=== PATIENT | male | born 1980 | race Caucasian/White ===

== ENCOUNTER → 2020-12-08 13:12 | Outpatient (REF) | payer MEDICAID, SELFPAY ==
--- NOTE | 2020-12-08 13:21 | ECG_ITS ---
Test Reason : CP Blood Pressure : / mmHG Vent. Rate : 084 BPM Atrial Rate : 084 BPM P-R Int : 134 ms QRS Dur : 090 ms QT Int : 346 ms P-R-T Axes : 065 071 035 degrees QTc Int : 408 ms Normal sinus rhythm Normal ECG No previous ECGs available Referred By: Lizette Sidhu Electronically Signed By:FRANK HERNANDEZ
== END ==
LOC: HO.CARD 13:12
PROVIDERS: PCP Registered Nurse; Visit Provider Registered Nurse
DX: R07.9 Chest pain, unspecified (principal); R00.2 Palpitations
CPT/HCPCS: 93005

== ENCOUNTER → 2023-01-11 09:56 | Outpatient (BNVA) | payer MEDICAID, SELFPAY | PROVIDERS: PCP Registered Nurse; Referring Provider Family Medicine; Visit Provider Internal Medicine | DX: R00.2 Palpitations (principal); I10 Essential (primary) hypertension; G47.33 Obstructive sleep apnea (adult) (pediatric); E66.01 Morbid (severe) obesity due to excess calories; Z68.43 Body mass index [BMI] 50.0-59.9, adult | CPT/HCPCS: 93005; 99202 ==

== ENCOUNTER → 2023-01-30 08:17 | Outpatient (REF) | payer MEDICAID, SELFPAY ==
--- NOTE | 2023-01-30 08:21 | CA_ITS ---
Transthoracic Echocardiogram Patient (Last, First, Middle): Avel Ambrose, Gender: Male Date of : 1980 Age: 42 Procedure Date: 01/30/2023 Procedure Type: Transthoracic Echocardiogram Location: OP Height: 167.64 cm Weight: 149.69 kg BSA: 2.47 m2 Heart Rate: bpm BP: 130 / 80 mmHg Cleaning Matron: PHILIP Referring MD: Christopher Max MD Symptoms: R00.2 - Palpitations Study Quality: Fair ECG Rhythm: Sinus Conclusions: - The left ventricular systolic function is normal. The visually estimated ejection fraction is between 65-70%. - No obvious valvular pathology seen on this study. Findings Left Ventricle Normal left ventricular cavity size. There is mildly increased left ventricular wall thickness. The left ventricular systolic function is normal. The visually estimated ejection fraction is between 65-70%. There is no evidence of regional wall motion abnormalities. Diastolic function is normal for age. Right Ventricle Mildly increased right ventricular cavity size. There is normal right ventricular systolic function. Atria Both atria are normal in size. Aortic Valve The aortic valve was not well visualized. There is no aortic valve stenosis. There is no aortic valve regurgitation. Mitral Valve The mitral valve appears normal. There is no mitral valve regurgitation. There is no mitral valve stenosis. Pulmonic Valve The pulmonic valve is likely normal. Tricuspid Valve There is trace tricuspid valve regurgitation. There is no evidence of pulmonary hypertension. Great Vessels The asc aorta is normal in size. Venous The inferior vena cava was not well visualized. Pericardium/Pleural There is no evidence of pericardial effusion. Prior Study Comparison No prior study available for comparison. Recommendations, Care & Conclusions No obvious valvular pathology seen on this study. Measurements 2D Linear Measurements IVSd: 1.16 0.6-0.9/0.6-1.0 cm LVIDd: 5.13 3.9-5.3/4.2-5.9 cm LVIDd Index: 2.08 2.4-3.2/2.2-3.1 cm/m2 LVIDs: 3.42 2.0-3.6 cm LVPWd: 1.12 0.7-1.1 cm LA Diam: 3.70 2.7-3.8/3.0-4.0 cm LAIDs Index: 1.50 1.5-2.3 cm/m2 LV Mass: 282.74 67-162/88-224 g LV Mass Index: 114.47 43-95/49-115 g/m2 LVOT Diam: 2.00 3.0+(-)1.3 cm 2D Systolic Function EF 4C: 68.20 >55% EF 2C: 76.50 >55% EF BiP: 71.90 >55% Mitral Valve MV Pk E: 0.84 MV PK A: 0.55 MV Decel Time: 192.00 E/A: 1.50 E'Lateral: 12.80 E'Medial: 8.05 E/E' Med: 10.50 E/E' Lat: 6.60 PHT: 56.00 MVA PHT: 3.93 Decel Berg[place]: 4.40 Aortic Valve AoV Pk Rufus: 1.31 AoV Mn Rufus: 0.83 AoV VTI: 0.27 AoV Pk Grad: 7.00 Aov Mn Grad: 3.00 ASHOK Cont.VTI: 2.92 LVOT LVOT Pk Rufus: 1.22 LVOT Mn Rufus: 0.73 LVOT VTI: 0.25 LVOT Pk Grad: 6.00 LVOT Mn Grad: 3.00 LVOT Diam: 2.00 LVOT Area: 3.14 Diastolic Function MV Pk E: 0.84 MV Pk A: 0.55 E/A: 1.50 E'Medial: 8.05 E/E' Med: 10.50 E' Laterial: 12.80 E/E' Lat: 6.60 Right Ventricle TAPSE (mm): 29.00 TVS' Rufus: 13.00 Tricuspid Valve TR Pk Rufus: 1.73 TR Pk Grad: 12.00 RA Press: 3.00 RVSP: 15.00 Great Vessels Aorta Ao Asc: 3.30 2.1-3.4 cm Updated in Other Vendor System with Status of Final Christopher Max MD electronically signed on 01/30/2023 11:56:49 AM with status of Final
--- NOTE | 2023-01-30 08:21 | HM_ITS ---
Conclusion: 1. Patient was monitored for total period of 2 days and 5 hours 2. Baseline was normal sinus rhythm with average heart rate of 75 beats per minute 3. No significant pauses or bradycardia noted 4. Very rare ectopy noted 5. No patient reported events MTDD
== END ==
LOC: HO.CARD 08:17
PROVIDERS: PCP Registered Nurse; Visit Provider Internal Medicine
DX: R00.2 Palpitations (principal)
CPT/HCPCS: 93225; 93306; Q9957

== ENCOUNTER 2023-09-06 09:37 | Outpatient (REF) | payer MEDICAID, SELFPAY ==
[2023-09-06 11:14] LABS: MANUAL DIFF FLAG NO
[2023-09-06 11:43] LABS: Basophils Absolute Auto 0.1 X10*3/uL (0.0-0.2); Basophils Percent Auto 0.6 % (0-2); Eosinophils Absolute Auto 0.2 X10*3/uL (0.0-0.4); Eosinophils Percent Auto 1.8 % (0-4); Hematocrit 45.5 % (42.0-52.0); Hemoglobin 14.7 g/dl (14.0-18.0); Imm Gran Abs Auto 0.05 X10*3/uL (0.00-0.03); Imm Gran Pct Auto 0.6 % (0.0-0.4); Lymphocytes Percent Auto 23.8 % (20-40); Mean Corpuscular HGB Conc 32.3 g/dl (31.0-36.0); Mean Corpuscular Hemoglobin 28.5 pg (27.0-33.0); Mean Corpuscular Volume 88.2 fL (80.0-98.0); Monocytes Absolute Auto 0.5 X10*3/uL (0.1-1.2); Monocytes Percent Auto 6.6 % (2-11); Neutrophils Absolute Auto 5.5 x10*3/uL (2.0-8.3); Neutrophils Percent Auto 66.6 % (45-73); Platelet Count 233 X10*3/uL (160-400); Red Blood Count 5.16 X10*6/uL (4.60-5.80); Red Cell Distribution Width 13.8 % (11.0-16.0); White Blood Count 8.2 X10*3/uL (4.8-10.8)
[2023-09-06 11:56] LABS: Estimated Average Glucose 108 mg/dL; Hemoglobin A1c % 5.4 % (<6.0)
[2023-09-06 12:17] LABS: Creatinine Urine 197.33 mg/dL; Microalbum/Creatinine Ratio Ur 4.5 ug/mg cr (<30)
[2023-09-06 12:27] LABS: HIV AB/AG Nonreactive (Nonreactive); HIV Num 1 0.05 S/CO (0.00-0.99)
[2023-09-06 14:52] LABS: Alanine Aminotransferase 29 U/L (0-40); Alkaline Phosphatase 41 U/L (39-117); Anion Gap 11 (12-20); Aspartate Amino Transferase 21 U/L (5-37); Bilirubin Total 0.4 mg/dL (0.0-1.0); Blood Urea Nitrogen 13 mg/dL (9-16); Calcium 9.3 mg/dL (8.4-10.2); Carbon Dioxide 24 mmol/L (22-29); Chloride 108 mmol/L (96-108); Cholesterol 163 mg/dL (<200); Estimated Glomerular Filt Rate > 60; Glucose Random 91 mg/dL (60-115); HDL Cholesterol 44 mg/dL (>40); LDL Cholesterol Calculated 104 mg/dL (<100); Potassium 4.3 mmol/L (3.3-5.1); Sodium 139 mmol/L (135-145); Total Protein 7.6 g/dL (6.5-8.0); Triglycerides 75 mg/dL (<150)
[2023-09-06 15:09] LABS: TSH reflex Free T4 1.52 uIU/mL (0.32-4.0)
[2023-09-07 19:48] LABS: HCV Log PCR <1.18 NOT DETECTED Log IU/mL (NOT DETECTED); HepC Viral Load <15 NOT DETECTED IU/mL (NOT DETECTED)
[2023-09-08 12:38] LABS: RPR Rapid Plasma Reagin NON-REACTIVE (NON-REACTIVE)
== END 2023-09-06 09:38 | disposition home or self-care (01) ==
LOC: HO.HHCL 09:37
PROVIDERS: Visit Provider Registered Nurse
DX: Z00.00 Encounter for general adult medical examination without abnormal findings (principal); Z11.4 Encounter for screening for human immunodeficiency virus [HIV]; I10 Essential (primary) hypertension; E66.01 Morbid (severe) obesity due to excess calories; Z68.43 Body mass index [BMI] 50.0-59.9, adult
CPT/HCPCS: 36415; 80053; 80061; 82043; 82570; 83036; 84443; 85025; 86592; 87389; 87522

== ENCOUNTER 2024-02-22 09:00 | Outpatient (AMB) | payer MEDICAID, SELFPAY ==
--- NOTE | 2024-02-22 09:01 | MHC.OFFVIS ---
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 I had a sleep apnea test last week, I have a machine already i just need to establish. Allergies aspirin [ASA] Allergy (Severe, Verified 02/22/24 09:05) ANAPHYLAXIS Medication List - Last Reconciled 02/22/24 by CONSTANCE Dupont bupropion HCl XL 300 mg PO QAM cholecalciferol (vitamin D3) (Vitamin D3) 50 mcg PO DAILY gabapentin 0 mg PO gabapentin 100 mg PO BID metoprolol tartrate 25 mg PO BID HPI Comments Details: right-handed 43-yr-old male presents for new in-person patient visit for sleep consultation. Patient reports he was dx'd w/ sleep apnea in [id number]. He has been using CPAP, however it is not working as well. He just underwent a f/u in-lab PSG last week at [facility]- unfortunately these results are not yet available. His current PAP device is a [employer] machine. His resp company is [employer]. Sleep questionnaire: Have you ever been diagnosed with a sleep disorder? Yes Have you ever had a sleep study in the past? Yes Have you ever been treated for a sleep disorder? Yes Do you take medications for a sleep disorder? Uses Gabapentin for PLMS/RLS. Do you have difficulty initiating sleep? yes Do you have difficulty maintaining sleep? yes Wakes up 2-3 x's. Do you wake up tired? yes Do you have daytime tiredness or fatigue? yes Do you easily fall asleep when inactive? yes Do you snore? yes Do you wake up gasping at night? yes Do you have episodes of apneas? yes Do you have headaches upon awakening? no Do you wake up with dry mouth or throat? yes Do you have GERD? denies Do you have nocturia? yes Do you have nocturnal leg cramps? yes Do you have symptoms of restless legs? Yes, and has Urge to move, Restlessness,Cramps. Involuntary movements- in legs, hand tremors L > R. Do you act out your dreams? Yes- talks, yells, punches Do you have sleep paralysis? no Do you have drop attacks? no Do you ever have hypnogenic hallucinations? has some nocturnal hallucinations- at times [facility] Medical History (Updated 02/22/24 @ 17:34 by CONSTANCE Dupont) Essential hypertension Morbid obesity NYA (obstructive sleep apnea) Family History Mother No problems noted. Father Throat cancer Social History Alcohol intake: never Patient Tobacco Use Status: Never used Tobacco Physical Exam Vital Signs: Last Vital Signs Pulse 76 02/22/24 09:03 Pulse Ox 95 02/22/24 09:03 Oxygen Delivery Method Room Air 02/22/24 09:03 BMI result Body Mass Index 52.0 Const General: no acute distress Orientation/consciousness: patient oriented x3 HEENT Other: Mallampati stage Resp Effort & Inspection: normal respiratory effort and able to speak in complete sentences Auscultation: clear to auscultation bilaterally Cardio Rate: regular rate Rhythm: regular rhythm Heart sounds: S1 normal heart sound present and S2 normal heart sound present Neuro Other: Mild LUE postural tremor, slight decreased fluidity in LUE DRE and LLE foot tap. General: patient oriented x3 Psych Appearance: grossly normal Mental Status: mental status grossly normal Speech and movement: Clear speech present Affect: normal affect Attitude: cooperative Assessment & Plan Assessment & Plan (1) NYA (obstructive sleep apnea): Code(s): G47.33 - Obstructive sleep apnea (adult) (pediatric) Category: Medical (2) Morbid obesity: Code(s): E66.01 - Morbid (severe) obesity due to excess calories Category: Medical (3) Snoring: Code(s): R06.83 - Snoring Category: Medical (4) Parasomnia: Code(s): G47.50 - Parasomnia, unspecified Category: Medical Plan Will request in-lab sleep study results- will review degree of sleep apnea and for any evidence of nocturnal hallucinations, involuntary movements and parasomnias during sleep. Note- pt is f/b [facility] for tremor. Continue Gabapentin 100mg bid and 300mg qhs. Will f/u with pt after review of recent sleep study to discuss results and appropriate treatment options. Pt to call with any worsening concerns or questions. f/u in 6 months or sooner prn. Coding Level of Care Code New Pt Level 3 (30428) Diagnoses NYA (obstructive sleep apnea) G47.33 Morbid obesity E66.01 Snoring R06.83 Parasomnia G47.50
[2024-02-22 09:03] VITALS: PULSE 76; O2SAT 95; BMI 52.0
== END 2024-02-22 09:58 | disposition home or self-care (01) ==
PROVIDERS: PCP Registered Nurse; Visit Provider Nurse Practitioner Family
DX: G47.33 Obstructive sleep apnea (adult) (pediatric) (principal); E66.01 Morbid (severe) obesity due to excess calories; R06.83 Snoring; G47.50 Parasomnia, unspecified
CPT/HCPCS: 99203

== ENCOUNTER → 2024-02-22 09:00 | Outpatient (BNVA) | payer MEDICAID, SELFPAY | PROVIDERS: PCP Registered Nurse; Visit Provider Nurse Practitioner Family | DX: G47.33 Obstructive sleep apnea (adult) (pediatric) (principal); G47.50 Parasomnia, unspecified; R06.83 Snoring; E66.01 Morbid (severe) obesity due to excess calories; Z68.43 Body mass index [BMI] 50.0-59.9, adult | CPT/HCPCS: 99212 ==

== ENCOUNTER 2024-05-01 07:20 | Day surgery (SDC) | payer MEDICAID, SELFPAY ==
[2024-04-29 13:39] VITALS: BMI 54.1
--- NOTE | 2024-04-30 12:08 | HO.ANESPROP2 ---
HPI - Anesthesia Eval Consult details Narrative: 43yo M for Upper Endoscopy and Colonoscopy BMI 54 PMFSH Active Problems Active Problems: All Active Problems Tremor (Acute) Parasomnia (Acute) Snoring (Acute) Heart palpitations (Acute) Essential hypertension (Acute) Morbid obesity (Acute) NYA (obstructive sleep apnea) (Acute) Past Medical History Medical History Depression Arthritis Asthma Essential hypertension Morbid obesity NYA (obstructive sleep apnea) Family History Family History Mother No problems noted. Father Throat cancer Surgical History Surgical History History of esophagogastroduodenoscopy (EGD) H/O colonoscopy Social History Social History Alcohol intake: never Patient Tobacco Use Status: Never used Tobacco Use of substances other than those prescribed or required for medical reasons: No Are you DNR?: No Advance Directives: No Advance Directives Information Provided: Yes Meds Allergies Allergy/AdvReac Type Severity Reaction Status Date / Time aspirin [ASA] Allergy Severe ANAPHYLAXIS Verified 02/22/24 09:05 Home Medications ?Medication ?Instructions ?Recorded ?Confirmed ?Last Taken ?Type bupropion HCl 300 mg 24 hr tablet, 300 mg PO QAM 01/11/23 04/29/24 Unknown History extended release gabapentin 100 mg capsule 100 mg PO BID 01/11/23 04/29/24 Unknown History metoprolol tartrate 25 mg tablet 25 mg PO BID 01/11/23 05/01/24 05/01/24 06:00 History albuterol sulfate 0.63 mg/3 mL 0.63 mg inhalation Q4-6H PRN 04/29/24 04/29/24 Unknown History solution for nebulization wheezing cholecalciferol (vitamin D3) 125 125 mcg PO DAILY 04/29/24 04/29/24 Unknown History mcg (5,000 unit) tablet (Vitamin D3) cyclobenzaprine 10 mg tablet 10 mg PO TID PRN Muscle Spasm 04/29/24 04/29/24 Unknown History montelukast 10 mg tablet 10 mg PO BEDTIME 04/29/24 04/29/24 Unknown History Exam Height,Weight and Vital Signs: Height 5 ft 6 in Weight 151.953 kg Narrative Narrative: ECHO 2022 Conclusions: - The left ventricular systolic function is normal. The visually estimated ejection fraction is between 65-70%. - No obvious valvular pathology seen on this study. Assessment and Plan Assessment Anesthesia Assessment: Chart Reviewed
[2024-05-01 07:40] VITALS: BMI 52.6
[2024-05-01 07:55] VITALS: BP 135/78; PULSE 74; RESP 18; TEMP 36.2; O2SAT 97
--- NOTE | 2024-05-01 08:02 | P.CONAN_ITS ---
[facility] Active Problems Active Problems: All Active Problems Tremor (Acute) Parasomnia (Acute) Snoring (Acute) Heart palpitations (Acute) Essential hypertension (Acute) Morbid obesity (Acute) NYA (obstructive sleep apnea) (Acute) Past Medical History Medical History Depression Arthritis Asthma Essential hypertension Morbid obesity NYA (obstructive sleep apnea) Functional capacity: independent ambulation Family History Family History Mother No problems noted. Father Throat cancer Pertinent family history: h Family history of problems with anesthesia: No Surgical History Surgical History History of esophagogastroduodenoscopy (EGD) H/O colonoscopy History of Problems with Anesthesia: No Social History Social History Alcohol intake: never Patient Tobacco Use Status: Never used Tobacco Use of substances other than those prescribed or required for medical reasons: No Are you DNR?: No Advance Directives: No Advance Directives Information Provided: Yes Meds Allergies Allergy/AdvReac Type Severity Reaction Status Date / Time aspirin [ASA] Allergy Severe ANAPHYLAXIS Verified 02/22/24 09:05 Active Medications: Current Medications Albuterol Sulfate (Albuterol Sulfate (0.083%) 2.5 Mg/3 Ml Vial.Neb) 2.5 mg INHALE ONCE PRN PRN Reason: Shortness of Breath/Wheezing Lactated Ringer's (Lr) 1,000 mls @ 100 mls/hr IVCONT .Q10H HOMER Sodium Biphosphate/Sodium Phosphate (Sodium Phosphate,[place]-Dibasic 133 Ml Enema) 133 ml NV ONCE PRN PRN Reason: Poor Colonoscopy Prep Results Home Medications ?Medication ?Instructions ?Recorded ?Confirmed ?Last Taken ?Type bupropion HCl 300 mg 24 hr tablet, 300 mg PO QAM 01/11/23 04/29/24 Unknown History extended release gabapentin 100 mg capsule 100 mg PO BID 01/11/23 04/29/24 Unknown History metoprolol tartrate 25 mg tablet 25 mg PO BID 01/11/23 05/01/24 05/01/24 06:00 History albuterol sulfate 0.63 mg/3 mL 0.63 mg inhalation Q4-6H PRN 04/29/24 04/29/24 Unknown History solution for nebulization wheezing cholecalciferol (vitamin D3) 125 125 mcg PO DAILY 04/29/24 04/29/24 Unknown History mcg (5,000 unit) tablet (Vitamin D3) cyclobenzaprine 10 mg tablet 10 mg PO TID PRN Muscle Spasm 04/29/24 04/29/24 Unknown History montelukast 10 mg tablet 10 mg PO BEDTIME 04/29/24 04/29/24 Unknown History Exam Height,Weight and Vital Signs: Height 5 ft 6 in Weight 147.871 kg Last Vital Signs Temp 97.2 F 05/01/24 07:55 Pulse 74 05/01/24 07:55 Resp 18 05/01/24 07:55 BP 135/78 05/01/24 07:55 Pulse Ox 97 05/01/24 07:55 O2 Del Method Room Air 05/01/24 07:55 Airway Mallampati Class: IV TM Dist: >3cm Neck ROM: Full Heart: RRR Lungs: CTA Assessment and Plan Final Anesthetic Review Family History of Problems with Anesthesia: No History of Problems with Anesthesia: No NPO: Yes ASA Class: III Final Preanesthetic Review: Meds/Allgs Chart Reviewed, Consent Obtained/Reviewed and Anes Risks/Benef Reviewed Patient Risk: Intermediate Procedure Risk: Low Anesthetic Plan Anesthetic Plan: GA Disposition: Standard PACU
[2024-05-01] MEDS: Lactated Ringers 1,000 ML 100 ML IVCONT (08:11)
[2024-05-01 10:10] VITALS: BP 156/86; PULSE 86; RESP 16; TEMP 36.1; O2SAT 95
[2024-05-01 10:15] VITALS: BP 143/75; PULSE 75; RESP 17; O2SAT 94
--- NOTE | 2024-05-01 10:18 | PM.OP ---
Brief Operative Note Date of Service: 05/01/24 Pre-op diagnosis: GERD, Screening Post-op diagnosis: other (GERD, Polyps) Procedure: EGD with bx, Colonoscopy to the cecum with bx/removal of polyps Surgeon: Remington Frances MD Anesthesia: GETA Was an Advertising Teacher used for this Procedure?: No Estimated blood loss (mL): 2.0 Pathology: other (A. EG Junction at 40cm B. Polyp at 50cm C. Polyp at 15cm) Condition: stable Disposition: PACU
[2024-05-01 10:20] VITALS: BP 133/82; PULSE 75; RESP 17; O2SAT 96
[2024-05-01 10:25] VITALS: BP 112/67; PULSE 77; RESP 17; O2SAT 93
[2024-05-01 10:40] VITALS: BP 124/68; PULSE 70; RESP 18; TEMP 36.2; O2SAT 96
--- NOTE | 2024-05-01 10:46 | OP_ITS ---
DATE OF SERVICE: 05/01/2024 SURGEON: Remington Frances MD INDICATIONS: The patient presents for evaluation of chronic gastroesophageal reflux and colorectal cancer screening. Full consent was obtained from him for this, including risks of bleeding and perforation. PREOPERATIVE DIAGNOSIS: POSTOPERATIVE DIAGNOSIS: PROCEDURE PERFORMED: ESTIMATED BLOOD LOSS: COMPLICATIONS: ANESTHESIA: General anesthesia. ASSISTANTS: SPECIMENS: PREOPERATIVE DIAGNOSES: Chronic gastroesophageal reflux and colorectal cancer screening. POSTOPERATIVE DIAGNOSES: Chronic gastroesophageal reflux and colorectal cancer screening, minimal hiatal hernia, minimal changes of reflux, small colon polyps, mild diverticulosis, and small internal hemorrhoids. PROCEDURES PERFORMED: Esophagogastroduodenoscopy with biopsies, and colonoscopy to cecum with biopsy and removal of polyps. DESCRIPTION OF PROCEDURE: The patient was placed in the supine position. The Olympus video gastroscope was passed in the posterior oropharynx and upper esophagus under direct vision. The scope was passed slowly to the distal esophagus. The gastroesophageal junction appeared at 40 cm. There was some very minimal irregularity, consistent with reflux, but no evidence of esophagitis nor any definitive evidence of Dobbins mucosa. The scope entered the stomach. There was a minimal hiatal hernia. The scope was advanced to pylorus and the duodenum was cannulated to the descending portion. The duodenum including the bulb appeared normal without mass or ulceration. The scope was withdrawn back in the stomach. The gastric antrum and body appeared normal with good peristalsis. The scope was retroflexed, visualizing the proximal stomach carefully, which appeared normal, without any sign of mass or ulceration. The scope was straightened and withdrawn back to the esophagus. Biopsies were obtained at the EG junction. Proximal to this, the esophageal mucosa appeared normal. Scope was withdrawn from the patient. He was turned around for the colonoscopy and placed in the left lateral decubitus position. The digital rectal exam revealed no abnormalities. The Olympus video pediatric colonoscope was entered into the rectum and advanced easily to the cecum. Once in the cecum, I did identify normal-appearing cecal pouch with appendiceal orifice and a normal-appearing ileocecal valve. The entire cecum and ileocecal valve appeared normal. The scope was slowly withdrawn assessing all mucosal surfaces carefully. Preparation was excellent. At 50 cm was a flat, approximately 3 mm polyp, which was biopsied and completely removed with cold biopsy forceps. There was a mild amount of sigmoid diverticulosis. I did not visualize any sign of colitis nor angiodysplasia. In the rectum, scope was retroflexed visualizing small internal hemorrhoids as well as 2 distal, less than 5 mm polyps, which were both biopsied and removed with a cold biopsy forceps. The scope was straightened and withdrawn from the patient. He tolerated both procedures well and was returned to recovery area in stable condition. IMPRESSION: 1. Small colon polyps. 2. Mild diverticulosis. 3. Small internal hemorrhoids. 4. Minimal hiatal hernia and reflux. PLAN: The results of the biopsies will be checked. If any of the polyps are tubular adenomas, I would recommend a followup colonoscopy in 5 years. If they are all hyperplastic, I would recommend a followup coloscopy in 10 years for screening. He will continue his daily omeprazole that I started him on back in January as he does report that it has been helping his reflux. He was advised not to use any aspirin and NSAIDs for 1 week. He will otherwise see me on a p.r.n. basis. MD MARU Guajardo/LACIE / [phone]
--- NOTE | 2024-05-01 11:15 | HO.POSTANES ---
Post Anesthesia Evaluation Post Anesthesia Evaluation Date of Service: 05/01/24 Vital Signs: Vital Signs Temp Pulse Resp BP Pulse Ox O2 Del Method 05/01/24 10:40 97.2 F 70 18 124/68 96 Room Air 05/01/24 10:25 77 17 112/67 93 Room Air 05/01/24 10:20 75 17 133/82 96 Room Air 05/01/24 10:15 75 17 143/75 H 94 Room Air 05/01/24 10:10 97.0 F 86 16 156/86 H 95 Room Air 05/01/24 07:55 97.2 F 74 18 135/78 97 Room Air Anesthesia: General Endotracheal-GETA Mental Status: Awake Pain Control: Satisfactory Nausea/Vomiting: None Hydration: Adequate Anesthesia-Related Issues: No Anes. Related Issues
== END 2024-05-01 11:15 | disposition home or self-care (01) ==
PROVIDERS: PCP Registered Nurse; Visit Provider Internal Medicine
PROC: (CPT 45380; principal; 2024-05-01 08:30)
DX: Z12.11 Encounter for screening for malignant neoplasm of colon (principal); K51.40 Inflammatory polyps of colon without complications; D12.5 Benign neoplasm of sigmoid colon; K62.1 Rectal polyp; K57.30 Diverticulosis of large intestine without perforation or abscess without bleeding; K64.8 Other hemorrhoids; K58.9 Irritable bowel syndrome, unspecified; R10.30 Lower abdominal pain, unspecified; R14.0 Abdominal distension (gaseous); K21.9 Gastro-esophageal reflux disease without esophagitis; K44.9 Diaphragmatic hernia without obstruction or gangrene; I10 Essential (primary) hypertension; J45.909 Unspecified asthma, uncomplicated; G47.33 Obstructive sleep apnea (adult) (pediatric); M47.9 Spondylosis, unspecified; F32.A Depression, unspecified; E66.01 Morbid (severe) obesity due to excess calories; Z68.43 Body mass index [BMI] 50.0-59.9, adult; Z79.899 Other long term (current) drug therapy; Z99.89 Dependence on other enabling machines and devices
CPT/HCPCS: 45380; 43239; 88305; 88313; J2704

== ENCOUNTER 2024-12-03 11:06 | Outpatient (REF) | payer MEDICAID, SELFPAY ==
[2024-12-03 14:15] LABS: MANUAL DIFF FLAG NO
[2024-12-03 14:27] LABS: Basophils Absolute Auto 0.1 X10*3/uL (0.0-0.2); Basophils Percent Auto 0.7 % (0-2); Eosinophils Absolute Auto 0.1 X10*3/uL (0.0-0.4); Eosinophils Percent Auto 1.3 % (0-4); Hematocrit 46.6 % (42.0-52.0); Hemoglobin 15.2 g/dl (14.0-18.0); Imm Gran Abs Auto 0.05 X10*3/uL (0.00-0.03); Imm Gran Pct Auto 0.7 % (0.0-0.4); Lymphocytes Absolute Auto 1.8 X10*3/uL (1.2-4.9); Lymphocytes Percent Auto 23.2 % (20-40); Mean Corpuscular HGB Conc 32.6 g/dl (31.0-36.0); Mean Corpuscular Hemoglobin 28.1 pg (27.0-33.0); Mean Corpuscular Volume 86.1 fL (80.0-98.0); Mean Platelet Volume 11.9 fL (9.4-12.4); Monocytes Absolute Auto 0.5 X10*3/uL (0.1-1.2); Monocytes Percent Auto 6.5 % (2-11); Neutrophils Absolute Auto 5.2 x10*3/uL (2.0-8.3); Neutrophils Percent Auto 67.6 % (45-73); Platelet Count 206 X10*3/uL (160-400); Red Blood Count 5.41 X10*6/uL (4.60-5.80); Red Cell Distribution Width 14.1 % (11.0-16.0); White Blood Count 7.7 X10*3/uL (4.8-10.8)
[2024-12-03 14:43] LABS: Estimated Average Glucose 108 mg/dL; Hemoglobin A1c % 5.4 % (<6.0); Total Hemoglobin (HGBA1C) 3950.8477 umol/L
[2024-12-03 14:53] LABS: Alanine Aminotransferase 36 U/L (0-40); Alkaline Phosphatase 47 U/L (39-117); Anion Gap 11 (12-20); Aspartate Amino Transferase 30 U/L (5-37); Bilirubin Total 0.6 mg/dL (0.0-1.0); Blood Urea Nitrogen 12 mg/dL (9-16); Calcium 9.4 mg/dL (8.4-10.2); Carbon Dioxide 25 mmol/L (22-29); Chloride 107 mmol/L (96-108); Cholesterol 172 mg/dL (<200); Estimated Glomerular Filt Rate > 60; Glucose Random 84 mg/dL (60-115); HDL Cholesterol 45 mg/dL (>40); LDL Cholesterol Calculated 106 mg/dL (<100); Potassium 4.2 mmol/L (3.3-5.1); Sodium 139 mmol/L (135-145); Total Protein 8.3 g/dL (6.5-8.0); Triglycerides 109 mg/dL (<150)
[2024-12-03 14:55] LABS: TSH reflex Free T4 1.57 uIU/mL (0.32-4.0)
[2024-12-03 15:14] LABS: Creatinine Urine 249.24 mg/dL; Microalbum/Creatinine Ratio Ur 4.4 ug/mg cr (<30)
[2024-12-03 16:24] LABS: CT PCR NOT DETECTED (Not Detect.); NG PCR NOT DETECTED (Not Detect.)
[2024-12-04 08:43] LABS: HBS Num1 0.48 mIU/mL (0-7.99); HBc Num1 0.06 S/CO (0.00-0.79); HBsAGNum1 0.28 S/CO (0.00-0.99); HIV AB/AG Nonreactive (Nonreactive); HIV Num 1 0.08 S/CO (0.00-0.99); Hepatitis B Core Antibody Nonreactive (Nonreactive); Hepatitis B Surface Antigen Negative (Negative); ~Hepatitis B Surface Antibody NONREACTIVE (Nonreactive)
[2024-12-04 10:13] LABS: RPR Rapid Plasma Reagin NON-REACTIVE (NON-REACTIVE)
[2024-12-04 13:49] LABS: HCV Log PCR <1.18 NOT DETECTED Log IU/mL (NOT DETECTED); HepC Viral Load <15 NOT DETECTED IU/mL (NOT DETECTED)
== END 2024-12-03 11:07 | disposition home or self-care (01) ==
LOC: HO.CHCLDS 11:06
PROVIDERS: Visit Provider Registered Nurse
DX: Z00.00 Encounter for general adult medical examination without abnormal findings (principal)
CPT/HCPCS: 36415; 80053; 80061; 82043; 82570; 83036; 84443; 85025; 86592; 86704; 86706; 87340; 87389; 87491; 87522; 87591

== ENCOUNTER 2025-02-21 11:12 | Outpatient (REF) | payer MEDICAID, SELFPAY ==
--- OUTSIDE RECORDS SUMMARY | 2025-02-21 12:03 | XMS_ITS | Patient Health Record ---
Author Organization [facility] Address [address] [place] [id number] Care Team Providers Care Bar Attendant Name Role Phone MARLYN SEGOVIA MD Primary Care Provider Remington Ruff [phone] Allergies Allergen (clinical drug ingredient) Drug/Non Drug Allergy documented on EMR Reaction Allergy Type Onset Date Status aspirin Aspirin Unknown Drug Allergy Active Results Component Value Reference Range Notes Pathology Reviewed date:12/04/2024 07:43:03 AM Interpretation: Performing Lab:[facility], [address] [place] [id number] Notes/Report: Name: Ratna Perla Age/Sex: 43/M : 1980 Unit#: [id number] Attend Dr: Remington Frances MD Re05/01/24 Status : [facility] Location: [facility] Disch: SPEC : [id number] RECD : 05/01/24 STATUS: HEMAL SAINI NUM: [id number] TOO: 05/01/[address] [facility] DR: Remington Frances MD ENTERED: 05/01/24-10 53 SP TYPE: Surgical OTHR DR: Marlyn Segovia UNDERLAY STITCHER ORDERED: HE Stain/9, Gross Micro L4/3, Special st. 2, AB/PAS Addendum Addendum 1 Entered: 05/07/24 Additional level wit h AB/PAS on A is negative for intestinal metaplasia. Control stains appropriately. Addendum Signed ____ __(signature on file) Jeannette Dillsboro 05/07/24917 Diagnosis A. Esophagogastric j unction, biopsy: Squamous mucosa with hyperplasia and focal intraepithelial eosi nophils (up to 2 per high-power field) consistent with reflux esophagitis, and col umnar mucosa with minimal inflammation and no intestinal metaplasia identified on initia l levels; negative for dysplasia. B. Colon, at 50 cm, polyp: Benign inflammatory polyp; negative for adenomatous dysplasia. C. Colon, distal rec zach polyps: Hyperplastic polyps. Comment: (A): Additional lev el with AB/PAS stain pending; addendum to follow. Clinical History Pre-Op Dx: Screening, GERD Post-Op Dx: Reflux, polyps, diverticulosis, hemorrhoids Microscopic Description Multiple microscopic sections reviewed. Material Received A. EG junction @ 40 B. Polyp @ 50 C. Distal rectal polyps CONTINUED ON NEXT PAGE Name: Ratna Perla Age/Sex: 43/M : 1980 Unit#: [id number] Attend Dr: Remington Frances MD Re05/01/24 Status : [facility] Location: [facility] Disch: SPEC : [id number] RECD : 05/01/24 STATUS: HEMAL SAINI NUM: [id number] TOO: 05/01/[address] [facility] [address]: Remington Frances MD ENTERED: 05/01/24-10 53 SP TYPE: Surgical OTHR DR: Marlyn Segovia ORDERED: HE Stain/9, Gross Micro L4/3, Special st. 2, AB/PAS Gross Description Received in three parts. Part A: Received in formalin labeled ?EG junction at 40? are 3 haines-pink irregular tissue fragments ranging fr om 0.2-0.3 cm, submitted in toto in a cassette labeled A. Part B: Received in formalin labeled ?polyp at 50 cm? is a 0.3 cm haines-pink papular tissue fragment, submitted in toto in a cassette labeled B. Part C: Received in formalin labeled ?distal rectal polyps? are 3 haines-pink irregular tissue fragments ranging fr om 0.15-0.3 cm, submitted in toto in a cassette labeled C. CEDS Special studies orde red and performed: AB/PAS stains on A1. Copies To: Marlyn Segovia [address] [place] [address] [facility] [address] [place] [address] [place] [address] Signed (si gnature on file) Jeannette Dillsboro 05/02/24 1326 END OF REPORT Reason For Referral No Information Medications Medication SIG (Take, Route, Frequency, Duration) Notes Start Date End Date Status Montelukast Sodium 10 MG 1 tablet Orally Once a day for 30 day(s) 01/31/2024 Active Senna Plus 8.6-50 MG 1 tablet as needed Orally Twice a day 01/31/2024 Active MiraLax 17 GM/SCOOP 1 scoop mixed with 8 ounces of fluid Orally Once a day for 30 day(s) 01/31/2024 Active Vitamin D-3 125 MCG (5000 UT) 1 tablet Orally Once a day for 30 day(s) 01/31/2024 Active Metoprolol Tartrate 25 MG TAKE 1 TABLET BY MOUTH TWICE DAILY Oral for 90 I10,Unavailab le Active Albuterol Sulfate 0.63 MG/3ML INHALE 1 AMPULE USING A NEBULIZER EVERY 4 TO 6 HOURS NEEDED FOR WHEEZING OR SHORTNESS OF BREATH DIRECTED Inhalation for 5 Active Dicyclomine HCl 10 MG 1 or 2 capsules Orally Every 6 hours as needed for abdominal discomfort/bloating for 30 day(s) 02/01/2024 Active Gabapentin 100 MG TAKE 1 CAPSULE BY MOUTH IN THE MORNING AND AFTERNOON Oral for 30 G4761,Unavail able Active Simethicone 80 MG 1 tablet after meals and at bedtime as needed Orally Four times a day 01/31/2024 Active Metoprolol Succinate 25 MG 1 capsule Orally Once a day for 30 day(s) 01/31/2024 Active MiraLax (colon prep) 17 GM/SCOOP 1 238Gm bottle mixed with Gatorade or Crystal Light Orally begin at 5:00 p.m. the day before the procedure for 1 day 02/01/2024 Active Flexeril 10 MG 1 tablet at bedtime as needed Orally Once a day for 30 day(s) 01/31/2024 Active Omeprazole 20 MG 1 Orally Every morning for heartburn for 30 day(s) 02/01/2024 Active Cyclobenzaprine HCl 10 MG TAKE 1 TABLET BY MOUTH THREE TIMES DAILY IN THE MORNING, AT NOON, AND AT BEDTIME NEEDED FOR MUSCLE SPASMS Oral for 20 Active MiraLax 17 GM 1 packet in 8 ounces of water Orally Once or Twice a day for constipation for 30 day(s) 02/01/2024 Active buPROPion HCl ER (XL) 300 MG TOME STEPHENIE TABLETA POR V A ORAL EN LA MA SASHA Oral for 30 Active Dulcolax (colon prep) 5 MG take at 3:00 p.m and 7:00p.m. Orally two tablets twice a day for one day for 1 day 02/01/2024 Active Immunizations Vaccine Route Administration Date Status Comme nts Influenza Unknown 01/31/2024 Refused Social History Tobacco Use: Social History Observation Description Date Details (start date - stop date) Never Smoker NA - NA Tobacco Use/Smoking Question Answer Notes Patient is a nonsmoker Alcohol Screen Question Answer Notes Did you have a drink containing alcohol in the p ast year? No Points 0 Interpretation Negative Section Notes: Nonsmoker; no sig. alcohol Problems Problem Type SNOMED Code ICD Code Onset Dates Problem Status W/U Status Risk Notes Problem Colon cancer screening (057637080) Colon cancer screening (Z12.11) Active confirmed Problem Irritable bowel syndrome (27247279) Irritable bowel syndrome (K58.9) Active confirmed Problem Gastro-esophageal reflux disease without esophagitis (227543771) Gastro-esophageal reflux disease without esophagitis (K21.9) Active confirmed Problem Abdominal bloating (327788077) Abdominal bloating (R14.0) Active confirmed Problem Diverticulosis o f large intestine without perforation or abscess without bleeding (K57.30) Active confirmed Problem Lower abdominal pain (48909398) Lower abdominal pain, unspecified (R10.30) Active confirmed Problem Gastroesophageal reflux disease (264845697) Chronic GERD (K21.9) Active confirmed Encounters Encounter Location Date Provider Diagnosis [facility] Out[facility] [address] [place] [address] [phone] 05/01/2024 Remington Fracnes Colon cancer scree ernie Z12.11 ; Colon [...] hernia (ICD-10 - K44.9) Plan Of Treatment Future Test Test Name Order Date UPPER GI ENDOSCOPY 01/31/2024 COLONOSCOPY 01/31/2024 Insurance Providers Payer Name Payer Address Payer Phone Subscriber Number Group Number Insured Name Patient Relationship to Insured Coverage Start Date Coverage End Date [facility] [address] [place] [phone] [id number] TJ RENO GINO Self - patient is the insured Medical (General) History Medical History History ICD Code Asthma HTN EGD in [place] approx 2013-told of H.pylori-n ot sure of details Neg. colonoscopy in 2013 in [place] by his report Arthritis in back Sleep apnea-uses CPAP Depression Denies MT,DM,CVA,renal disease Obesity Surgical History Surgery Date(Month/Year)
[2025-02-21 14:44] LABS: Prostate Specific Antigen 0.63 ng/mL (<0.05-4.0)
[2025-02-21 15:21] LABS: Alanine Aminotransferase 29 U/L (0-40); Albumin Level 4.1 g/dL (3.5-5.0); Alkaline Phosphatase 43 U/L (39-117); Aspartate Amino Transferase 24 U/L (5-37); Bilirubin Direct 0.2 mg/dL (0.0-0.5); Bilirubin Total 0.5 mg/dL (0.0-1.0); Total Protein 7.9 g/dL (6.5-8.0)
== END 2025-02-21 11:13 | disposition home or self-care (01) ==
LOC: HO.CHCLDS 11:12
PROVIDERS: Visit Provider Registered Nurse
DX: Z00.00 Encounter for general adult medical examination without abnormal findings (principal); R77.8 Other specified abnormalities of plasma proteins
CPT/HCPCS: 36415; 80076; 84153

== ENCOUNTER 2025-03-06 13:03 | Outpatient (AMB) | payer MEDICAID, SELFPAY ==
[2025-03-06 13:12] VITALS: BP 124/82; PULSE 75; O2SAT 94; BMI 52.1
--- NOTE | 2025-03-06 13:12 | MHC.OFFVIS ---
Vital Signs 03/06/25 13:12 Height 5 ft 6 in Weight 323 lb BMI 52.1 BP 124/82 Blood Pressure Location Rt brachial Position Sitting Pulse 75 Pulse Source Pulse Oximeter Pulse Oximetry (%) 94 Oxygen Delivery Method Room Air Intake Visit Reasons: Follow Up Pathology Secretary/Transcriptionist Required: Yes Pathology Secretary/Transcriptionist Name: Roshni Casiano Accompanied by: Self / Same As Patient Allergies aspirin (ASA) Allergy (Severe, Verified 03/06/25 13:14) ANAPHYLAXIS Medication List - Last Reconciled 03/06/25 by CONSTANCE Dupont albuterol sulfate 0.63 mg inhalation Q4-6H PRN bupropion HCl XL 300 mg PO QAM cholecalciferol (vitamin D3) (Vitamin D3) 125 mcg PO DAILY cyclobenzaprine 10 mg PO TID PRN gabapentin 100 mg PO BID metoprolol tartrate 25 mg PO BID montelukast 10 mg PO BEDTIME HPI Comments Details: Right-handed 43-yr-old male presents for follow-up of severe obstructive sleep apnea, however patient would also like to discuss increasing forgetfulness. Since last visit, we did review his previous in-lab split night sleep study which showed severe sleep apnea with baseline AHI 45 per hour, O2 susi 77%, and SpO2 under 88% x2 0.4 minutes, average SpO2 95%. During titration component of study patient was tried on CPAP 6-16 cm H2O, and BiPAP - and recommendation was to start patient on auto CPAP 10-18 cm H2O. Upon review, we sent an order for auto CPAP 10-18 cm H2O to his respiratory company. Patient states he is using his CPAP, but he is not always sleeping well. Unfortunately we do not have a current compliance report, in are unable to access it today. Patient also reports that his PCP is concerned about worsening forgetfulness. States his PCP recently did a mini-mental exam, and he could only recall 1 of the 3 words. Patient also states that he is no longer following up with the outside neurology group providing his LUE tremor. 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 He states he has had the LUE tremor for quite some time. The tremor occurs at rest and with activities. The tremor increases when he is anxious or stressed. He endorses hyposmia- denies any history of COVID-19 infections. He also reports LUE tightness/stiffness, low back stiffness. He continues to endorse talking in his sleep even with the using his CPAP machine, nocturnal hallucinations. He denies any specific gait changes. 2023, brain MRI with and without contrast, was unremarkable. He denies family history of movement disorder. He endorses early onset dementia symptoms in a maternal grandmother and uncle ( in the detention), and dementia in his father with onset in his mid 60s. He states his son in his early 20s, has mood disorder and schizophrenia. Patient denies history of neuroleptic exposure, states he is taking bupropion for some time 02/22/24, Initial HPI: Right-handed 43-yr-old male presents for new in-person patient visit for sleep consultation. Patient reports he was dx'd w/ sleep apnea in [id number]. He has been using CPAP, however it is not working as well. He just underwent a f/u in-lab PSG last week at [facility]- unfortunately these results are not yet available. His current PAP device is a Resmed machine. His resp company is [email or web address]. Sleep questionnaire: Have you ever been diagnosed with a sleep disorder? Yes Have you ever had a sleep study in the past? Yes Have you ever been treated for a sleep disorder? Yes Do you take medications for a sleep disorder? Uses Gabapentin for PLMS/RLS. Do you have difficulty initiating sleep? yes Do you have difficulty maintaining sleep? yes Wakes up 2-3 x's. Do you wake up tired? yes Do you have daytime tiredness or fatigue? yes Do you easily fall asleep when inactive? yes Do you snore? yes Do you wake up gasping at night? yes Do you have episodes of apneas? yes Do you have headaches upon awakening? no Do you wake up with dry mouth or throat? yes Do you have GERD? denies Do you have nocturia? yes Do you have nocturnal leg cramps? yes Do you have symptoms of restless legs? Yes, and has Urge to move, Restlessness,Cramps. Involuntary movements- in legs, hand tremors L > R. Do you act out your dreams? Yes- talks, yells, punches Do you have sleep paralysis? no Do you have drop attacks? no Do you ever have hypnogenic hallucinations? has some nocturnal hallucinations- at times [facility] Medical History Depression Arthritis Asthma Essential hypertension Morbid obesity NYA (obstructive sleep apnea) Surgical History History of esophagogastroduodenoscopy (EGD) H/O colonoscopy Family History Mother No problems noted. Father Throat cancer Social History Alcohol intake: never Patient Tobacco Use Status: Never used Tobacco Physical Exam Vital Signs: Last Vital Signs Pulse 75 03/06/25 13:12 BP 124/82 03/06/25 13:12 Pulse Ox 94 03/06/25 13:12 Oxygen Delivery Method Room Air 03/06/25 13:12 BMI result Body Mass Index 52.1 Const General: no acute distress Orientation/consciousness: patient oriented x3 Resp Effort & Inspection: normal respiratory effort and able to speak in complete sentences Auscultation: clear to auscultation bilaterally Neuro Other: Mild left facial droop Facial expression and blink okay Mild LUE rest, postural tremor, wing beat, and kinetic tremor on finger-nose test without dysmetria. No appreciable tone in bilateral upper extremities Slight decreased fluidity in LUE DRE Fine finger movements- very slight decreased fluidity on left Foot taps-very slight decrease on left Stand slowly- slight decreased left arm swing with fine tremor General: patient oriented x3 Psych Appearance: grossly normal Mental Status: mental status grossly normal Speech and movement: Clear speech present Affect: normal affect Attitude: cooperative Assessment & Plan Assessment & Plan (1) NYA (obstructive sleep apnea): Comment: uses CPAP Code(s): G47.33 - Obstructive sleep apnea (adult) (pediatric) Category: Medical (2) Parasomnia: Code(s): G47.50 - Parasomnia, unspecified Category: Medical (3) Tremor: Code(s): R25.1 - Tremor, unspecified Category: Medical (4) Cognitive changes: Code(s): R41.89 - Other symptoms and signs involving cognitive functions and awareness Category: Medical Plan For NYA: Continue APAP 10-18 cmH2O nightly > 4 hours, as pt continues to have good clinical effect from use. Will request updated PAP compliance report Clean CPAP machine and supplies routinely. Change CPAP supplies routinely. Use distilled water in CPAP water reservoir. Pt to contact us or respiratory company with any questions or concerns. For reports of cognitive changes and forgetfulness in setting of LUE tremor, hyposmia, parasomnias, and family history of early-onset cognitive disorder: Discussed that patient's symptoms may be secondary to his sleep apnea, and thus we will request compliance data as above. However, we can also see this constellation of symptoms in certain movement and cognitive disorders, thus patient is advised to undergo the following studies to further assess: Labs for common etiologies Matheus PET scan Baseline neuropsychological evaluation In the meantime, continue Gabapentin 100mg bid and 300mg qhs. Future considerations: Genetic testing, trial of anti tremor medication. Will follow-up upon review of above and patient to follow-up in clinic in 6 months or sooner prn. Orders: Orders Complete Blood Count Auto Diff Today E66.01 - Morbid (severe) obesity due to excess calories, G47.50 - Parasomnia, unspecified, I10 - Essential (primary) hypertension, R25.1 - Tremor, unspecified, R41.89 - Other symptoms and signs involving cognitive functions and awareness Comprehensive Met. Panel Today E66.01 - Morbid (severe) obesity due to excess calories, G47.50 - Parasomnia, unspecified, I10 - Essential (primary) hypertension, R25.1 - Tremor, unspecified, R41.89 - Other symptoms and signs involving cognitive functions and awareness Vitamin B1 Today E66.01 - Morbid (severe) obesity due to excess calories, G47.50 - Parasomnia, unspecified, I10 - Essential (primary) hypertension, R25.1 - Tremor, unspecified, R41.89 - Other symptoms and signs involving cognitive functions and awareness Vitamin D 25-OH (D2 and D3) Today E66.01 - Morbid (severe) obesity due to excess calories, G47.50 - Parasomnia, unspecified, I10 - Essential (primary) hypertension, R25.1 - Tremor, unspecified, R41.89 - Other symptoms and signs involving cognitive functions and awareness Erythrocyte Sedimentation Rate Today E66.01 - Morbid (severe) obesity due to excess calories, G47.50 - Parasomnia, unspecified, I10 - Essential (primary) hypertension, R25.1 - Tremor, unspecified, R41.89 - Other symptoms and signs involving cognitive functions and awareness C Reactive Protein Today E66.01 - Morbid (severe) obesity due to excess calories, G47.50 - Parasomnia, unspecified, I10 - Essential (primary) hypertension, R25.1 - Tremor, unspecified, R41.89 - Other symptoms and signs involving cognitive functions and awareness Syphilis Screen Today E66.01 - Morbid (severe) obesity due to excess calories, G47.50 - Parasomnia, unspecified, I10 - Essential (primary) hypertension, R25.1 - Tremor, unspecified, R41.89 - Other symptoms and signs involving cognitive functions and awareness HIV Ab/Ag Today E66.01 - Morbid (severe) obesity due to excess calories, G47.50 - Parasomnia, unspecified, I10 - Essential (primary) hypertension, R25.1 - Tremor, unspecified, R41.89 - Other symptoms and signs involving cognitive functions and awareness Lyme IgG/IgM w/reflex to WB Today E66.01 - Morbid (severe) obesity due to excess calories, G47.50 - Parasomnia, unspecified, I10 - Essential (primary) hypertension, R25.1 - Tremor, unspecified, R41.89 - Other symptoms and signs involving cognitive functions and awareness SASHA Reflex Titer and Pattern Today E66.01 - Morbid (severe) obesity due to excess calories, G47.50 - Parasomnia, unspecified, I10 - Essential (primary) hypertension, R25.1 - Tremor, unspecified, R41.89 - Other symptoms and signs involving cognitive functions and awareness Vitamin B12 and Folate Today E66.01 - Morbid (severe) obesity due to excess calories, G47.50 - Parasomnia, unspecified, I10 - Essential (primary) hypertension, R25.1 - Tremor, unspecified, R41.89 - Other symptoms and signs involving cognitive functions and awareness Rheumatoid Factor Today E66.01 - Morbid (severe) obesity due to excess calories, G47.50 - Parasomnia, unspecified, I10 - Essential (primary) hypertension, R25.1 - Tremor, unspecified, R41.89 - Other symptoms and signs involving cognitive functions and awareness DaTscan Today G47.50 - Parasomnia, unspecified, R25.1 - Tremor, unspecified, R41.89 - Other symptoms and signs involving cognitive functions and awareness Referrals Neuropsychiatry Referral G47.33 - Obstructive sleep apnea (adult) (pediatric), R25.1 - Tremor, unspecified, R41.89 - Other symptoms and signs involving cognitive functions and awareness Coding Level of Care Code Est Pt Level 4 (94824) Complex EM visit Add On G2211 Diagnoses NYA (obstructive sleep apnea) G47.33 Parasomnia G47.50 Tremor R25.1 Cognitive changes R41.89
--- OUTSIDE RECORDS SUMMARY | 2025-03-06 14:12 | XMS_ITS | Patient Health Record ---
Author Organization [facility] Address [address] [place] [phone] Care Team Providers Care Youth Corrections Officer Name Role Phone MARLYN SEGOVIA MD Primary Care Provider Remington Ruff [phone] Allergies Allergen (clinical drug ingredient) Drug/Non Drug Allergy documented on EMR Reaction Allergy Type Onset Date Status aspirin Aspirin Unknown Drug Allergy Active Results Component Value Reference Range Notes Pathology Reviewed date:12/04/2024 07:43:03 AM Interpretation: Performing Lab:[facility], [address] [place] [phone] Notes/Report: Name: Ratna Perla Age/Sex: 43/M : 1980 Unit#: [id number] Attend Dr: Remington Frances MD Re05/01/24 Status : [facility] Location: [facility] Disch: SPEC : [id number] RECD : 05/01/24 STATUS: HEMAL SAINI NUM: [id number] TOO: 05/01/24 [facility] DR: Remington Frances MD ENTERED: 05/01/24-10 53 SP TYPE: Surgical OTHR DR: Marlyn Segovia FISH HATCHERY MANAGER ORDERED: HE Stain/9, Gross Micro L4/3, Special st. 2, AB/PAS Addendum Addendum 1 Entered: 05/07/24 Additional level wit h AB/PAS on A is negative for intestinal metaplasia. Control stains appropriately. Addendum Signed ____ __(signature on file) Jeannette Sarbjit 05/07/24917 Diagnosis A. Esophagogastric j unction, biopsy: [...] Ratna Perla Age/Sex: 43/M : 1980 Unit#: [id number] Attend Dr: Remington Frances MD Re05/01/24 Status : [facility] Location: [facility] Disch: SPEC : [id number] RECD : 05/01/24 STATUS: HEMAL SAINI NUM: [id number] TOO: 05/01/24 [facility] DR: Remington Frances MD ENTERED: 05/01/24-10 53 [...] on A1. Copies To: Marlyn Segovia [address] [place] [address] Remington Frances MD [facility] GI [address] [place] [address] [place] [address] Signed (si gnature on file) Jeannette Sarbjit 05/02/24 1326 END OF REPORT Reason For [...] Status Risk Notes Problem Colon cancer screening (537876020) Colon cancer screening (Z12.11) Active confirmed Problem Irritable bowel syndrome (74991272) Irritable bowel syndrome (K58.9) Active confirmed Problem Gastro-esophageal reflux disease without esophagitis (112765490) Gastro-esophageal reflux disease without esophagitis (K21.9) Active confirmed Problem Abdominal bloating (932995787) Abdominal bloating (R14.0) Active confirmed Problem Diverticulosis o f large intestine without perforation or abscess without bleeding (K57.30) Active confirmed Problem Lower abdominal pain (39203333) Lower abdominal pain, unspecified (R10.30) Active confirmed Problem Gastroesophageal reflux disease (507794939) Chronic GERD (K21.9) Active confirmed Encounters Encounter Location Date Provider Diagnosis [facility] Outpatient [address] [place] [address] [id number] 05/01/2024 Remington Frances Colon cancer scree ernie [...] Start Date Coverage End Date [facility]ICA[facility] OF [facility] [address] [place] [phone] [id number] TJ RENO GINO Self - patient is the insured Medical (General) History Medical History History ICD Code Asthma HTN EGD in [place] approx 2013-told of H.pylori-n ot sure of details Neg. colonoscopy in 2013 in [place] by his report Arthritis in back Sleep apnea-uses CPAP Depression Denies [place],DM,CVA,renal disease Obesity Surgical History Surgery Date(Month/Year)
== END 2025-03-06 14:32 | disposition home or self-care (01) ==
LOC: HO.HSMS 13:03
PROVIDERS: PCP Registered Nurse; Visit Provider Nurse Practitioner Family
DX: G47.33 Obstructive sleep apnea (adult) (pediatric) (principal); G47.50 Parasomnia, unspecified; R25.1 Tremor, unspecified; R41.89 Other symptoms and signs involving cognitive functions and awareness
CPT/HCPCS: 99214

== ENCOUNTER 2025-03-06 13:03 | Outpatient (REF) | payer MEDICAID, SELFPAY ==
[2025-03-06 17:23] LABS: MANUAL DIFF FLAG NO
[2025-03-06 17:53] LABS: Basophils Percent Auto 0.5 % (0-2); Eosinophils Absolute Auto 0.1 X10*3/uL (0.0-0.4); Eosinophils Percent Auto 1.6 % (0-4); Hematocrit 46.1 % (42.0-52.0); Hemoglobin 14.9 g/dl (14.0-18.0); Imm Gran Abs Auto 0.06 X10*3/uL (0.00-0.03); Imm Gran Pct Auto 0.8 % (0.0-0.4); Lymphocytes Absolute Auto 1.8 X10*3/uL (1.2-4.9); Lymphocytes Percent Auto 23.3 % (20-40); Mean Corpuscular HGB Conc 32.3 g/dl (31.0-36.0); Mean Corpuscular Hemoglobin 28.3 pg (27.0-33.0); Mean Corpuscular Volume 87.5 fL (80.0-98.0); Mean Platelet Volume 11.7 fL (9.4-12.4); Monocytes Absolute Auto 0.5 X10*3/uL (0.1-1.2); Monocytes Percent Auto 6.2 % (2-11); Neutrophils Absolute Auto 5.2 x10*3/uL (2.0-8.3); Neutrophils Percent Auto 67.6 % (45-73); Platelet Count 211 X10*3/uL (160-400); Red Blood Count 5.27 X10*6/uL (4.60-5.80); Red Cell Distribution Width 13.6 % (11.0-16.0); White Blood Count 7.7 X10*3/uL (4.8-10.8)
[2025-03-06 18:02] LABS: Alanine Aminotransferase 27 U/L (0-40); Albumin Level 4.2 g/dL (3.5-5.0); Alkaline Phosphatase 43 U/L (39-117); Anion Gap 10 (12-20); Aspartate Amino Transferase 28 U/L (5-37); Bilirubin Total 0.6 mg/dL (0.0-1.0); Blood Urea Nitrogen 13 mg/dL (9-16); C Reactive Protein 0.57 mg/dL (< or = 0.50); Calcium 9.3 mg/dL (8.4-10.2); Carbon Dioxide 26 mmol/L (22-29); Chloride 107 mmol/L (96-108); Estimated Glomerular Filt Rate > 60; Glucose Random 79 mg/dL (60-115); Potassium 4.1 mmol/L (3.3-5.1); Sodium 139 mmol/L (135-145); Total Protein 7.9 g/dL (6.5-8.0)
[2025-03-06 18:04] LABS: Rheumatoid Factor < 13.0 IU/mL (<15.0)
[2025-03-06 18:30] LABS: Erythrocyte Sedimentation Rate 9 MM/HR (0-15)
[2025-03-06 18:32] LABS: Folate 9.7 ng/mL (> or = 4.0); Vitamin B12 453 pg/mL (200-900)
[2025-03-07 08:05] LABS: Syphilis Screen Nonreactive (Nonreactive)
[2025-03-07 08:17] LABS: HIV AB/AG Nonreactive (Nonreactive); HIV Num 1 0.06 S/CO (0.00-0.99)
[2025-03-07 21:18] LABS: Lyme Blot 1.83 index
[2025-03-08 14:02] LABS: Lyme Abs Screen POS
[2025-03-10 12:09] LABS: Anti Nuclear Antibody Screen NEGATIVE (NEGATIVE)
[2025-03-11 13:24] LABS: 18 KD (IgG) Band NON-REACTIVE; 23 KD (IgG) Band NON-REACTIVE; 23 KD (IgM) Band NON-REACTIVE; 28 KD (IgG) Band NON-REACTIVE; 30 KD (IgG) Band NON-REACTIVE; 39 KD (IgM) Band NON-REACTIVE; 39KD (IgG) Band NON-REACTIVE; 41 KD (IgM) Band NON-REACTIVE; 41KD (IgG) Band REACTIVE; 45 KD (IgG) Band NON-REACTIVE; 58 KD (IgG) Band NON-REACTIVE; 66 KD (IgG) Band NON-REACTIVE; 93 KD (IgG) Band NON-REACTIVE; Lyme IgG Blot Interp NEGATIVE (NEGATIVE); Lyme IgM Blot Interp NEGATIVE (NEGATIVE)
[2025-03-12 05:53] LABS: Vitamin B1 8 nmol/L (8-30)
[2025-03-13 14:03] LABS: Vitamin D 25-OH, D2 <4 ng/mL; Vitamin D 25-OH, D3 22 ng/mL; Vitamin D 25-OH, Total 22 ng/mL (30-100)
== END 2025-03-06 13:04 | disposition home or self-care (01) ==
LOC: HO.HKASLDS 13:03
PROVIDERS: PCP Registered Nurse; Visit Provider Nurse Practitioner Family
DX: R25.1 Tremor, unspecified (principal); E66.01 Morbid (severe) obesity due to excess calories; I10 Essential (primary) hypertension; G47.50 Parasomnia, unspecified; R41.89 Other symptoms and signs involving cognitive functions and awareness
CPT/HCPCS: 36415; 80053; 82306; 82607; 82746; 84425; 85025; 85652; 86038; 86140; 86431; 86617; 86618; 86780; 87389; 99212

== ENCOUNTER 2025-06-10 10:37 | Outpatient (REF) | payer MEDICAID, SELFPAY ==
--- OUTSIDE RECORDS SUMMARY | 2024-05-01 06:40 | XMS_ITS ---
Author Organization [facility] Address [address] [place] [phone] Care Team Providers Care Temperature Control Inspector Name Role Phone MARLYN SEGOVIA MD Primary Care Provider Remington Ruff [phone] REASON FOR VISIT screening, gerd Problems Problem Type SNOMED Code ICD Code Onset Dates Problem Status W/U Status Risk Notes Problem Diverticular disease of colon (936112437) Diverticulosis of large intestine without perforation or abscess without bleeding (K57.30) Active confirmed Problem Gastro-esophagea l reflux disease without esophagitis (237013443) Gastro-esophageal reflux disease without esophagitis (K21.9) Active confirmed Encounters Encounter Location Date Provider Diagnosis [facility] [place] [address] [place] [phone] 05/01/2024 Remington Frances Colon cancer scree ernie [...] * GINO PERLA JDOB:1980 (44 yo M)Acc No.[id number]:05/01/2024 EGD and COL/MAC Patient: GINO SOMMER Provider: Tala Frances MD :1980 A ge:43 Y S ex:Male Date:05/01/2024 Address:[address] [place] [address] Pcp:MARLYN SEGOVIA MD Subjective: * Chief Complaints: [...] Procedure Codes: 4 5380 COLONOSCOPY AND BIOPSY, 08357 UPPER GI ENDOSCOPY, BIOPSY * * The named appointment provid er may or may not be the originator of this progress note, and it is not deemed complete until electronically signed by the appointment provider. Sign off status: Pending * Provider: Tala Frances MD Date: 0 05/01/2024 Generated for Jason queen/Azalia/eTransmitting on: 0 06/10/2025 01:00 PM EDT
--- OUTSIDE RECORDS SUMMARY | 2025-06-10 13:00 | XMS_ITS | Encounter Summary ---
Author Organization [employer] [facility] Address [address] [place] [address] 7 [place] [address] Care Team Providers Care Machine Folder Name Role Phone Loli Gould Primary Care Provider [phone] Encounter Details Date Type Department Care Team (Latest Contact Info) Description 10/01/2018 Abstract [facility] CONVERSIONS Dental, Provider, DDS Social History Tobacco Use Types Packs/Day Years Used Date Smoking Tobacco: Never Assessed Sex and Gender Information Value Date Recorded Sex Assigned at Male 07/18/2022 10:33 AM EDT Legal Sex Male 10:33 AM EDT Gender Identity Male 07/18/2022 10:33 AM EDT Sexual Orientation Straight 07/18/2022 10 :33 AM EDT documented as of this encounter Plan of Treatment Upcoming Encounters Date Type Department Care Team (Late st Contact Info) Description 06/23/2025 11:30 AM EDT Office Visit [facility] MED & PEDS [address] [place] [address] Loli Gould FNP [address] [place] [address] 09/29/2025 1:30 PM EST Office Visit [facility] OPTOMETRY [address] [place] [address] Kathleen Leigh, OD [address] [place] [address] documented as of this encounter Visit Diagnoses Not on filedocumented in this encounter Care Teams Machine Folder Relationship Specialty Start Date End Date Loli Gould FNP [address] [place] [address] PCP - General Family Medicine 05/13/22 documented as of this encounter
--- OUTSIDE RECORDS SUMMARY | 2025-06-10 13:00 | XMS_ITS | Patient Health Record ---
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 Role Phone MARLYN SEGOVIA MD Primary Care Provider UnavailRemington Sheldon Unavailable [phone] Allergies Allergen (clinical drug ingredient) Drug/Non Drug Allergy documented on EMR Reaction Allergy Type Onset Date Status aspirin Aspirin Unknown Drug Allergy Active Reason For Referral No Information Medications Medication [...] Status Risk Notes Problem Colon cancer screening (190304547) Colon cancer screening (Z12.11) Active confirmed Problem Irritable bowel syndrome (24258779) Irritable bowel syndrome (K58.9) Active confirmed Problem Gastro-esophageal reflux disease without esophagitis (276009983) Gastro-esophageal reflux disease without esophagitis (K21.9) Active confirmed Problem Abdominal bloating (587505925) Abdominal bloating (R14.0) Active confirmed Problem Diverticular disease of colon (286048476) Diverticulosis of large intestine without perforation or abscess without bleeding (K57.30) Active confirmed Problem Lower abdominal pain (32850782) Lower abdominal pain, unspecified (R10.30) Active confirmed Problem Gastroesophageal reflux disease (184624312) Chronic GERD (K21.9) Active confirmed Plan Of Treatment Future Test Test Name Order Date UPPER GI ENDOSCOPY 01/31/2024 COLONOSCOPY 01/31/2024 Insurance Providers Payer Name Payer Address Payer Phone Subscriber Number Group Number Insured Name Patient Relationship to Insured Coverage Start Date Coverage End Date MEDICAID OF [employer] [address] [place] [phone] [id number] GINO PERLA Self - patient is the insured Medical (General) History Medical History History ICD Code Asthma HTN EGD in [place] approx 2013-told of H.pylori-n ot sure of details Neg. colonoscopy in 2013 in [place] by his report Arthritis in back Sleep apnea-uses CPAP Depression Denies [place],DM,CVA,renal disease Obesity Surgical History Surgery Date(Month/Year)
--- OUTSIDE RECORDS SUMMARY | 2025-06-10 13:01 | XMS_ITS | Encounter Summary ---
Author Organization [employer] Address [address] [facility] 7 [place] [address] Care Team Providers Care Keno Attendant Name Role Phone Loli Gould Primary Care Provider [phone] Reason for Visit * Reason Onset Date Comments Created in error 05/06/2024 Encounter Details Date Type Department Care Team ([facility] st Contact Info) Description 05/06/2024 Telephone [facility] MEDICINE [address] [place] [address] Loli Gould FNP [address] [place] [address] Created in error Social History Tobacco Use Types Packs/Day Years Used Date Smoking Tobacco: Never Passive Smoke Exposure: Never Smokeless Tobacco: Never Depression Answer Date Recorded Patient Health Questionnaire-9 Score 25 05/06/2024 Patient Health Questionnaire-9 Score 25 05/06/2024 Last PHQ-9: Questionnaire Data Not on file 0 05/06/2024 Housing Stability Answer Date Recorded What is your housing situation today? I have shalini russo 08/28/[address] you li ve. Do you have problems with any of the following? None of the above 08/28/2023 Food Insecurity Answer Date Recorded Within the past 12 months, y ou worried that your food would run out before you got money to buy more: Never True 08/28/2023 Within the past 12 months,th e food you bought just didn't last and you didn't have enough money to get more: Never True 07/2023 Transportation Answer Date Recorded In the past 12 months, has l ack of transportation kept you from medical appts, meetings, work or from getting things needed for daily living? No 08/28/2023 Utilities Answer Date Recorded In the past 12 months, has t he electric, gas, oil or water company threatened to shut off services in your home? No 08/28/2023 Depression Answer Date Recorded Patient Health Questionnaire-2 Score 6 05/06/2024 Sex and Gender Information Value Date Recorded Sex Assigned at Male 07/18/2022 10:33 AM EDT Legal Sex Male 10:33 AM EDT Gender Identity Male 07/18/2022 10:33 AM EDT Sexual Orientation Straight 07/18/2022 10 :33 AM EDT documented as of this encounter Functional Status * Over the past 2 weeks, how often have you been bothered by any of the following problems? Question Answer Date of Assessment Author Patient Health Questionnaire -2 Score 6 05/06/2024 2:30 PM EDT Denys Shaw MA * If you checked off any problems on this questionnaire so far, Question Answer Date of Assessment Author How difficult have these problems made it for you to do your work, take care of things at home, or get along with other people? Extremely difficult 05/06/2024 2:30 PM EDT Maliha Shaw MA * Over the last 2 weeks, how often have you been bothered by any of the following problems? Question Answer Date of Assessment Author Feeling nervous, anxious, or on edge 3 04/19 8:00 AM EDT Elizabeth Heath Not being able to stop or co ntrol worrying 3 05/07/2024 8:00 AM EDT Elizabeth Heath Worrying too much about diff erent things 3 05/07/2024 8:00 AM EDT Elizabeth Heath Trouble relaxing 3 05/07/2024 8:00 AM EDT Elizabeth Shields Being so restless that it is hard to sit still 3 05/07/2024 8:00 AM ABT Elizabeth Heath Becoming easily annoyed or irritable 3 04/19 8:00 AM EDT Elizabeth Heath Feeling afraid as if somethi ng awful might happen 2 05/07/2024 8:00 AM EDT Elizabeth Heath ION-7 Total Score 20 05/07/2024 8:00 AM EDT Elizabeth Heath * Over the past 2 weeks, how often have you been bothered by any of the following problems? Question Answer Date of Assessment Author Little interest or pleasure in doing things Nearly every day 05/06/2024 2:30 PM EDT Maliha Shaw MA Feeling down, depressed, or hopeless Nearly every day 05/06/2024 2:30 PM EDT Maliha Shaw MA Trouble falling or staying asleep, or sleeping too much Nearly every day 05/06/2024 2:30 PM EDT Maliha Shaw MA Feeling tired or having little energy Nearly every day 05/06/2024 2:30 PM EDT Maliha Shaw MA Poor appetite or overeating Nearly every day 05/06/2024 2:30 PM EDT Maliha Shaw MA Feeling bad about yourself - or that you are a failure or have let yourself or your family down Nearly every day 05/06/2024 2:30 PM EDT Maliha Shaw MA Trouble concentrating on things, such as reading the newspaper or watching television Nearly every day 05/06/2024 2:30 PM EDT Maliha Shaw MA Moving or speaking so slowly that other people could have noticed? Or the opposite - being so fidgety or restless that you have been moving around a lot more than usual. Nearly every day 05/06/2024 2:30 PM EDT Maliha Shaw MA Thoughts that you would be better off or hurting yourself in some way Several days 05/06/2024 2:30 PM EDT Maliha Shaw MA Patient Health Questionnaire-9 Score 25 05/06/2024 2:30 PM EDT Maliha Shaw MA documented as of this encounter Plan of Treatment Upcoming Encounters Date Type Department Care Team (Late st Contact Info) Description 06/23/2025 11:30 AM EDT Office Visit [facility] MED & PEDS [address] [place] [address] Loli Gould FNP [address] [place] [address] 09/29/2025 1:30 PM EST Office Visit [facility] OPTOMETRY [address] [place], [place] [address] Kathleen Leigh, OD [address] [place] [address] documented as of this encounter Visit Diagnoses Not on filedocumented in this encounter Additional Health Concerns Assessment Noted Time PHQ-9 Depression Total Score: 25 024 2:30 PM EDT documented as of this encounter Care Teams Keno Attendant Relationship Specialty Start Date End Date Loli Gould FNP [address] [place] [address] PCP - General Family Medicine 05/13/22 documented as of this encounter
--- OUTSIDE RECORDS SUMMARY | 2025-06-10 13:01 | XMS_ITS | Clinical Summary ---
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 albuterol (ProAir HFA) 108 (90 Base) MCG/ACT inhaler Inhale 2 puffs every 4 (four) hours if needed. 8 Active lidocaine (Lidoderm) 5 % patch Place 1 patch on the skin at bed time. 0 Active montelukast (Singulair) 10 MG tablet Take 1 tablet by mouth at bed time. 0 Active omeprazole (PriLOSEC) [address] Manisha ns:Gastroesophag eal reflux disease without esophagitis TAKE 1 CAPSULE BY MOUTH EVERY DAY IN THE MORNING (FOR HEARTBURN) 4 Active acetaminophen (Tylenol 8 Hour) 650 MG ER tablet Take 650 mg by mouth every 8 (eight) hours. 4 Active polyethylene glycol, PEG, 3350 (MiraLax) 17 GM/SCOOP powderIndication s:Constipation, unspecified constipation type take (17G) by oral route every day mixed with 8 oz. water, juice, soda, coffee or tea for 1-2 weeks, then decrease frequency to every other day Strength: 17 GM/SCOOP 238 g 1 5 Active dicyclomine (Bentyl) 10 MG capsuleIndicatio ns:Irritable bowel syndrome, unspecified type TAKE 1 TO 2 CAPSULES BY MOUTH EVERY 6 HOURS NEEDED FOR ABDOMINAL DISCOMFORT 180 capsule 2 5 Active albuterol 0.63 MG/3ML nebulizer solutionIndicati ons:Mild intermittent asthma without complication use as directed every 4-6 hours as needed for wheezing or SOB 75 mL 3 5 Active cyclobenzaprine (Flexeril) 10 MG tabletIndication s:Muscle spasms of both lower extremities Take 1 tablet (10 mg) by mouth if needed in the morning, at noon, and at bedtime for muscle spasms. 45 tablet 1 5 Active senna-docusate sodium (Senokot-S) 8.6-50 MG tabletIndication s:Constipation, unspecified constipation type TAKE 1 TO 2 TABLETS BY MOUTH AT BEDTIME NEEDED FOR CONSTIPATION 180 tablet 1 5 Active cholecalciferol (Vitamin D-3) 1.25 MG (59607 UT) capsule TOME 1 C PSULA POR V A ORAL EVERY WEEK FOR 12 WEEKS 5 Active gabapentin (Neurontin) 100 MG capsuleIndicatio ns:Periodic limb movement disorder TAKE 1 CAPSULE BY MOUTH TWICE DAILY IN THE MORNING AND AFTERNOON 180 capsule 1 5 Active buPROPion XL (Wellbutrin XL) 150 MG 24 hr tabletIndication s:Mood disorder (CMS/HCC) Take 1 tablet (150 mg) by mouth Once per day. Do not crush, chew, or split. 90 tablet 1 5 026 Active gabapentin (Neurontin) 300 MG capsuleIndicatio ns:Periodic limb movement disorder TAKE 1 CAPSULE BY MOUTH EVERY EVENING 90 capsule 1 5 Active metoprolol tartrate (Lopressor) 50 MG tabletIndication s:Hypertension, essential Take 1 tablet (50 mg) by mouth 2 times daily. 180 tablet 1 5 026 Active simethicone (Gas Relief) 80 MG chewable tablet CHEW 1 TABLET EVERY 6 HOURS IF NEEDED FOR GAS. 60 tablet 2 5 Active Urea 40 % lotionIndication s:Keratosis pilaris Apply 1 Application topically 2 times daily. (Location: arms) 325 mL 2 025 Active Active Problems Problem Noted Date Diagnosed Date Memory change 02/21/2025 Assessment & Plan (02/21/2025 12:19 PM EDT): - Reports over the past year has been having difficulty with short term recall. Ex: why he is going into a room, what he is looking for, etc. 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 Suspect r/t poor sleep and mental health - Brain MRI May 2024 unremarkable - Labs: TSH, RPR wnl November 2024 - 02/21/25 Minicog score: 3/5. - Plan: schedule with RN memory screening visit. 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 [facility] MRI brain w/ and w/o contrast completed May 2024 wnl Severe anxiety 05/07/2024 Acid reflux 05/07/2024 Overview (05/07/2024): Continue omeprazole 20mg daily PRN EGD performed Apr 2024 - [facility] Dr. Frances. Noted minimal hiatal hernia and reflux. IBS (irritable bowel syndrome) 05/07/2024 Assessment & Plan (05/07/2024 10:31 AM EDT): Evaluated by [facility] in January [address] - [address] Frances. Dicyclomine PRN Morbid obesity 05/06/2024 Parasomnia 05/06/2024 Other hyperlipidemia 10/15/2023 Overview (02/21/2025): Lab Results Component Value Date CHOL 172 12/03/2024 CHOL 163 09/06/2023 TRIG 109 12/03/2024 TRIG 75 09/06/2023 HDL 45 12/03/2024 HDL 44 09/06/2023 LDLCHOLCAL 106 (H) 12/03/2024 LDLCHOLCAL 104 (H) 09/06/2023 -continue lifestyle modification Assessment & Plan (02/21/2025 9:31 AM EDT): ASCVD risk 2.5% (February 2025) --> not indicated for statin at this time Tremor of both hands 09/03/2023 Overview (05/07/2024): -Evaluated Jun 2020 by [facility] and suspected physiological tremor. -Cont gabapentin (100mg QAM and afternoon, 300mg QHS) -Denies any difficulty with balance -2nd opinion: November 2023 - [facility] (Dr. Lujan). Mild tremor, suspected benign essential tremor. No med. 1 year follow up. Healthcare maintenance 09/03/2023 Overview (02/21/2025): Colonoscopy: 05/01/24 at [facility] - Dr. Frances. Hyperplastic polyps, f/up 10 years Asymptomatic STI screening: Neg Aug 2023 Last PE: 02/21/25 HCP: signed 02/21/25 Assessment & Plan (02/21/2025 12:21 PM EDT): Will consider Hep B vaccine Assessment & Plan (06/06/2024 2:27 PM EDT): Declines flu vaccine today Follow up in 3 months for PE, blood work ordered to be completed 1-2 weeks prior to PE. 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 Completed therapy at [facility], but then self-discontinued. Today: - Reports feels stable, will let us know if interested in referral for other therapist. 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 Initial consult pending. Today: - Reports that he did not find wellbutrin very effective, and was heightening other unpleasant SE such as increased alertness and irritability. Will plan to stop med, and refer to Tele-psych for further eval and management. Crisis info reviewed. 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 Declines interest in referral for OP therapy, but did agree to in person BE today. - Plan: start Bupropion XL 150mg daily. May increase to 300mg XL next appt if tolerating well. Crisis info PRN. Assessment & Plan (05/07/2024 8:32 AM EDT): PROGRESS NOTE: ID: Avel is a 43 y.o. Decline to answer straight-identified cis-male with previous documented hx of Depression MH services including OP Psychotherapy psychopharmacology who presents for Anxiety and Depression. During IBH Consult Avel presenting with depressed mood, loss of interests/pleasure , changes in sleep difficulty falling asleep and difficulty staying asleep , change in appetite or weight reduce appetite, psychomotor retardation, trouble concentrating, fatigue/loss of energy, worthlessness , thoughts of and excessive worry/anxiety, difficulty controlling worry, restless/keyed up/On edge, easily fatigued, difficulty concentrating/Mind going blank , irritability, muscle tension, and sleep disturbance difficulty falling asleep and difficulty staying asleep ; for a period of 18+ mo, for all symptoms in the context of fleeing from [place] and move to [place], language difficulty, social stressors, dealing with work injury, financial instability, worried about his son who has serious mental illness and lack of OP services. PCP will start Avel on wellbutrin XL 150mg as patient reported medication was helpful in the past. PLAN: New/Additional Services needed PCP management Off-site services for Behavioral Health Integration Plan Internal Follow up with I as needed External OP therapy referral and OP psychiatry Referral Patient Self Plan Patient to utilize skills provided in intervention , Patient to reach out to [facility] team as needed, Comply with medication , Patient to engage in OP therapy , and Patient to reach out to [facility] as needed Assessment & Plan (12/22/2022 9:39 AM EDT): Although he reported that symptom onset corresponded to upheaval caused by [place] and move to [place], language difficulty, social stressors, strongly suspect underlying depressive disorder. 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 Also worried about his son who has serious mental illness. Auditory hallucinations. Also significant tremor of hands and head, unclear whether related to anxiety. No red flags for BPD. Has failed multiple atypical antipsychotics: Vraylar 1.5 mg seems to have worsened his mood and caused irritability. Abilify 2 mg caused MATUTE. And now Geodon 20 mg BID also worsened mood and increased irritability. At this time he will stop the Geodon and continue the Wellbutrin XL 300 mg in am. Pt is morbidly obese, so important to avoid medications with metabolic S/E's. Referring to [facility] Dept for BE. F/U with Neurologist as planned re tremor. F/U with me in 1 month. He agrees with the plan. Palpitations 10/25/2022 Overview (09/03/2023): -Oct 2022: EKG normal, referred to Cardiology Assessment & Plan (09/03/2023 8:44 PM EST): Notes from Cards requested, to review with patient during upcoming appt. Reviewed red flag symptoms. Assessment & Plan (10/25/2022 2:56 PM EST): EKG normal Risk factor includes sleep apnea. Will refer to Cardiology. Degenerative arthritis of lumbar spine Overview (01/27/2024): MRI in 2019 with the following impression: 1. The lumbar canal is congenitally diminutive due to short pedicles. 2. Mild degenerative changes are seen at L4-5 where there is mild to moderate left neural foraminal stenosis. Referral to [facility] Pain Management placed 01/26/24 Assessment & Plan (01/27/2024 11:31 AM EDT): -Chronic low back pain w/o red flag symptoms -Encouraged to continue with symptomatic management Assessment & Plan (10/15/2023 4:07 PM EST): -Acute on chronic low back pain w/o red flag symptoms -Encouraged to continue with symptomatic management. Follow up if interested in referral to physical therapy or Sports medicine. Mild intermittent asthma 08/27/2022 Overview (09/03/2023): -Cont Albuterol PRN -Cont Montelukast 10mg nightly Assessment & Plan (02/21/2025 12:20 PM EDT): Well controlled Periodic limb movement disorder 08/27/2022 Essential hypertension 02/18/2019 Assessment & Plan (02/21/2025 12:18 PM EDT): -Well controlled -Cont metoprolol 50mg BID (hx palpitations) -Future considerations: TERRANCE/ARB, converting to metoprolol XL -Encourage lifestyle interventions Previous medications: -hydrochlorothiazide Assessment & Plan (06/06/2024 2:26 PM EDT): -Elevated per home readings (140s-150s systolic) -Increase to metoprolol 50mg BID -Encourage lifestyle interventions -Plan to record home readings and send in through portal in 2 weeks Previous medications: -hydrochlorothiazide Assessment & Plan (05/07/2024 10:54 AM EDT): -Elevated in office, although typically well controlled -Continues on metoprolol 25mg BID -Encourage lifestyle interventions -Record home BP readings, follow up if above goal Previous medications: -hydrochlorothiazide Assessment & Plan (09/03/2023 8:38 PM EST): -Well controlled -Continues on metoprolol 25mg BID -Encourage lifestyle interventions Previous medications: -hydrochlorothiazide Assessment & Plan (10/25/2022 2:55 PM EST): Not controlled. Previosly on HCTZ, today we are going to change to metoprolol 25mg BID. Spondylolysis 10/17/2018 Obstructive sleep apnea syndrome, severe 018 Overview (05/07/2024): Established with [facility]. CONSTANCE Pacheco 02/18/24: [facility] Study - severe NYA. Rec AutoCPAP 10-18 w/ heated humidifier Assessment & Plan (02/21/2025 12:20 PM EDT): CPAP supplies: [facility] Follow up with [facility] Sleep as scheduled on 03/06/25 Assessment & Plan (05/07/2024 10:34 AM EDT): Spoke with specialist office 05/06/24 - CPAP supplies sent to [facility] on 03/15/24. Assessment & Plan (08/28/2023 8:51 AM EST): January 2023: CPAP supplies sent to [facility] Resolved Problems Problem Noted Date Diagnosed Date Resolved Date Snoring 05/06/2024 05/07/2024 Tremor 05/06/2024 05/07/2024 NYA (obstructive sleep apnea) 05/06/2024 05/07/2024 Heart palpitations 05/06/2024 Current moderate episode of major depressive disorder 11/03/2022 12/22/2022 Assessment & Plan (12/01/2022 9:35 AM EDT): vs. Adjustment disorder. History: Symptom onset corresponded to upheaval caused by [place] and move to [place], language difficulty, social stressors. Also work injury, financial instability. 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 Also worried about his son who has serious mental illness. Auditory hallucinations. Also significant tremor of hands and head, unclear whether related to anxiety. No red flags for BPD. Vraylar 1.5 mg seems to have worsened his mood and caused irritability. Abilify 2 mg caused MATUTE. Recently started Geodon 20 mg BID which does seem to have controlled his auditory hallucinations, however he thinks it may be making him feel more sad. He thinks it would be worth trying a little longer, but has been instructed to stop right away if the sadness gets worse or he starts having thoughts of self-harm or suicide. Will increase to Wellbutrin XL 300 mg in am. Pt is morbidly obese, so important to avoid medications with metabolic S/E's. F/U with Neurologist as planned re tremor. F/U with me in 1 month. He agrees with the plan. Assessment & Plan (11/03/2022 4:47 PM EST): vs. Adjustment disorder. Symptom onset corresponded to upheaval caused by [place] and move to [place], language difficulty, social stressors. Also work injury, financial instability. 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 Also worried about his son who has serious mental illness. Auditory hallucinations. Also significant tremor of hands and head, unclear whether related to anxiety. No red flags for BPD. Vraylar 1.5 mg seems to have worsened his mood and caused irritability. Abilify 2 mg caused MATUTE. Will now have Geodon 20 mg BID. Explained that this is a low dose and he might not notice much improvement, but if tolerated could be increased as needed. Although he feels Wellbutrin XL 150 mg is not helpful at all, recommend he continue for now until mood stabilized with new regimen. Pt is morbidly obese, so important to avoid medications with metabolic S/E's. F/U with Neurologist as planned re tremor. F/U with me in 1 month. He agrees with the plan. Encounters Date Type Department Care Team Description 06/10/2025 Telephone [facility] [address] [place] [address] Loli Gould FNP Lab Orders 06/10/2025 Telephone [place] [employer] [facility] [address], [place] [id number] Loli Gould FNP 04/30/2025 Travel 04/24/2025 10:00 AM EDT Office Visit [facility] [address] [place] [address] Lele Leighn, OD Presbyopia (Primary Dx) 04/18/2025 Refill [facility] [address] [place] [address] Loli Gould FNP 04/18/2025 Refill [facility] [address] [place] [address] Loli Gould FNP Periodic limb movement disorder; Mood disorder (CMS/HCC); Hypertension, essential; Keratosis pilaris 03/28/2025 11:00 AM EDT Office Visit [facility] [address] [place] [address] Reese, Kathleen, OD Choroidal nevus of right eye (Primary Dx); Anomalous optic nerve (CMS/HCC); Blepharitis of both eyes, unspecified eyelid, unspecified type; Presbyopia 03/28/2025 Travel from Last 3 Months Immunizations Immunization Administration Dates Next Due Tdap 07/15/2021 Family History Medical History Relation Name Comments Hypertension Brother Depression Father Hypertension Father Schizophrenia Father Throat cancer Father Thyroid disease Mother Hyperlipidemia Paternal Grandfather Hypertension Paternal Grandfather Stomach cancer Paternal Grandfather Hypertension Sister Relation Name Status Comments Brother Father Mother Paternal Grandfather Sister Social History Tobacco Use Types Packs/Day Years Used Date Smoking Tobacco: Never Passive Smoke Exposure: Never Smokeless Tobacco: Never Tobacco Cessation:Counseling Given: Not Answered Depression Answer Date Recorded Patient Health Questionnaire-9 Score 22 02/21/2025 Patient Health Questionnaire-9 Score 22 02/21/2025 Last PHQ-9: Questionnaire Data Not on file 0 02/21/2025 Housing Stability Answer Date Recorded What is [...] got money to buy more: Never True 2024 Within the past 12 months,th e food you bought just didn't last and you didn't have enough money to get more: Sometimes True 02/21/2025 Transportation Answer Date Recorded In the past 12 months, has l ack of transportation kept you from medical appts, meetings, work or from getting things needed for daily living? I am not sure 02/21/2025 Utilities Answer Date Recorded In the past 12 months, has t he electric, gas, oil or water company threatened to shut off services in your home? No 08/28/2023 Depression Answer Date Recorded Patient Health Questionnaire-2 Score 6 02/21/2025 Internet Access Answer Date Recorded Internet Access Q1 Yes 06/20/2024 Internet Access Q2 Not on file 06/20/2024 Sex and Gender Information Value Date Recorded Sex Assigned at Male 07/18/2022 10:33 AM EDT Legal Sex Male 10:33 AM EDT Gender Identity Male 07/18/2022 10:33 AM EDT Sexual Orientation Straight 07/18/2022 10 :33 AM EDT Last Filed Vital Signs Vital Sign Reading Time Taken Comments Blood Pressure 132/70 02/21/2025 9:33 AM EDT Pulse 75 02/21/2025 9:32 AM EDT Temperature 36.2 C (97.2 F) 02/21/2025 9:32 AM EDT Respiratory Rate 22 02/21/2025 9:32 AM EDT Oxygen Saturation 97% 02/21/2025 9:32 AM EDT Inhaled Oxygen Concentration - - Weight 143 kg (316 lb 4 oz) 02/21/2025 9:32 AM E DT Height 167.6 cm (5' 6 ) 02/21/2025 9:32 AM EDT Body Mass Index 51.04 02/21/2025 9:32 AM EDT Plan of Treatment Upcoming Encounters Date Type Department Care Team (Late st Contact Info) Description 06/23/2025 11:30 AM EDT Office Visit [facility] [address] [place], [place] [phone] Loli Gould, MAIL MESSENGER CONTRACTOR [address] [place], [place] [phone] 09/29/2025 1:30 PM EST Office Visit [facility] [address] [place] [address] ReeseKathleen, OD [address] [place] [address] Health Maintenance Due Date Last Done Comments CT Colonography 1978 FIT DNA/Cologuard 1978 FIT 1978 FOBT 1978 Sigmoidoscopy 1978 Family Planning (PISQ) 1993 Hepatitis B Vaccines (1 of 3 - 19+ 3-dose series) 1997 Pneumococcal Vaccine: Pediatrics (0 to 5 Years) and At-Risk Patients (6 to 49) Years (1 of 2 - PCV) 1997 COVID-19 Vaccine ( - season) 2025 Influenza Vaccine (#1) 2025 SDOH Screening 06/20/2025 06/20/2024 Depression Monitoring 08/23/2025 02/21/2025, 025 Alcohol/Substance Use Screening 02/21/2026 02/21/2025 Disability Screening 02/21/2026 02/21/2025 Tobacco Screening 04/10/2026 04/10/2025 Zoster Vaccines (1 of 2) 2028 Lipid Panel 12/03/2029 12/03/2024, 08/19, 02/15/2022, Additional history exists DTaP/Tdap/Td Vaccines (2 - Td or Tdap) 07/15/2031 07/15/2021 Colonoscopy 05/01/2034 05/01/2024 Colorectal Cancer Screening 05/01/2034 RSV Patients and Patients Aged 60 years or older (1 - 1-dose 75+ series) 2053 Hepatitis C Screening Completed 12/03/2024 , 09/06/2023, 04/14/2020 HIV Screening Completed 03/06/2025, 11/16, 09/06/2023, Additional history exists HIB Vaccines Aged Out No longer eligi ble based on patient's age to complete this topic HPV Vaccines Aged Out No longer eligi ble based on patient's age to complete this topic Hepatitis A Vaccines Aged Out No long er eligible based on patient's age to complete this topic IPV Vaccines Aged Out No longer eligi ble based on patient's age to complete this topic Meningococcal B Vaccine Aged Out No l onger eligible based on patient's age to complete this topic Meningococcal Vaccine Aged Out No sid freddy eligible based on patient's age to complete this topic RSV under 20 months Aged Out No longe r eligible based on patient's age to complete this topic Rotavirus Vaccines Aged Out No longer eligible based on patient's age to complete this topic Procedures Procedure Name Priority Date/Time Associated Diagnosis Comments OPTIC DISC PHOTOS - OU - BOTH EYES Routine 03/28/2025 11:00 AM EDT Anomalous optic nerve (CMS/HCC) OCT, OPTIC NERVE - OU - BOTH EYES Routine 03/28/2025 11:00 AM EDT Anomalous optic nerve (CMS/HCC) HIV 1/2 ANTIGEN/ANTIBODY, FOURTH GENERATION W/RFL Routine 03/06/2025 2:50 PM EDT HEPATITIS C VIRAL RNA, QUANTITATIVE, REAL-TIME PCR Routine 12/03/2024 11:08 AM EDT Healthcare maintenance LIPID PANEL, STANDARD Routine 12/03/2024 11:08 AM EDT Healthcare maintenance HM COLONOSCOPY Routine 05/01/2024 Healthcare maintenance from Last 3 Months or Most Recently Relevant to Health Maintenance Results * Optic Disc Photos - OU - Both Eyes (03/28/2025 11:00 AM EDT) Narrative Kathleen Leigh, OD - 04/10/2025 2:23 PM EDT Images from the original result were not included. OPTIC NERVE PHOTO INTERPRETION Optic Nerve Photo Interpretation Test Details: Photo quality: OD: good OS: good Cup to disc ratio: OD vertical: 0.55 OD horizontal: 0.55 OS vertical: 0.65 OS horizontal: 0.65 Rim characteristics: OD: Tilted inferonasally significantly OS: Mildly tilted inferiorly Assessment and Plan: OCT attempted today. Unable to obtain scan of the right eye due to the significant optic nerve tilt. Will monitor at his next exam. Kathleen Leigh OD OPHTH PHOTOGRAPHY Final Resul t * OCT, Optic Nerve - OU - Both Eyes (03/28/2025 11:00 AM EDT) Narrative Kathleen Leigh, OD - 04/10/2025 2:12 PM EDT Erroneous order Kathleen Leigh OD OPHTH TOMOGRAPHY Final Result * HIV-1/2 Antigen and Antibodies, Fourth Generation, with Reflexes (03/06/2025 2:50 PM EDT) [facility] HIV AB/AG Nonreactive Nonreactive [facility] Comment:HIV-1 p24 Ag and/or HIV-1/HIV-2 Ab not detected.A test result that is nonreactive does not exclude thepossibility of exposure to or infection with HIV-1 and/orHIV-2. Nonreactive results in this assay for individualswith prior exposure to HIV-1 and/or HIV-2 may be due toantigen and antibody levels that are below the limit ofdetection of this assay.The GBS HIV Ag/Ab Combo assay result andsupplemental assay results should be interpreted inconjunction with the patient's clinical presentation,history and other laboratory results. If the results areinconsistent with clinical evidence, additional testing issuggested to confirm the result. 03/06/2025 2:50 PM EDT 03/06/2025 5:17 PM EDT us Generic External Data Provider LAB BLOOD ORDERAB LES Final Result Performing Organization Address [facility]/ZIP Co de Phone Number [facility] [address] [place] [phone] * Hepatitis C Viral RNA, Quantitative, Real-Time PCR (12/03/2024 11:08 AM EDT) Pathologist [facility] Hepatitis C Viral Load <15 NOT DETECTED NOT DETECTED IU/mL [facility] HCV Log PCR <1.18 NOT DETECTED NOT DETECTED Log IU/mL [facility] Comment:For additional infor mation, please refer tohttp://education.[employer]/faq/QEC63k1(This link is being provided for informational/educational purposes only.)THIS TEST WAS PERFORMED AT:[facility] [place] [id number] GOMEZ MD Blood 12/03/2024 11:0 8 AM EDT 12/03/2024 2:11 PM EDT Loli Gould MAIL MESSENGER CONTRACTOR LAB BLOOD ORDERABLES Final Res ult Performing Organization Address [facility] Co de Phone Number [facility] [address] [place] [phone] * (ABNORMAL) Lipid Panel, Standard (12/03/2024 11:08 AM EDT) Triglycerides 109 <150 mg/dL [facility] Comment:Desirable Triglyceri de: less than 150 mg/dLBorderline High Triglyceride 150-199 mg/dLHigh Triglyceride: 200-499 mg/dLVery High Triglyceride: greater than or equal to 5OO mg/dL Cholesterol 172 <200 mg/dL [facility] Comment:Desirable Cholestero l: less than 200 mg/dLBorderline High Cholesterol: 200-239 mg/dLHigh Cholesterol: greater than 239 mg/dL LDL Cholesterol Calculated 106(H) <100 mg/dL [facility] Comment:Desirable LDL: less than 100 mg/dLNear Optimal/Above Optimal LDL: 110- 129 mg/dLBorderline High LDL: 130-159 mg/dLHigh LDL: 160-189 mg/dLVery High LDL: greater than or equal to 190 mg/dL HDL Cholesterol 45 >40 mg/dL [facility] Comment:Desirable HDL: great er than 40 mg/dL Note: This HDL assay may give artificially low results in patients with liver disease. Blood Venous blood specimen / Unknown 12/03/2024 11:08 AM EDT 12/03/2024 2:11 PM EDT Loli Gould MAIL MESSENGER CONTRACTOR LAB BLOOD ORDERABLES Final Res ult [facility] [address] [place] [phone] * Colonoscopy (05/01/2024) Colonoscopy Normal Normal 05/01/2024 Historical Provider HEALTH MAINTENANCE Final Result from Last 3 Months or Most Recently Relevant to Health Maintenance Insurance C3 Advance Directives Documents on File Type Date Recorded Patient Environmental Quality Analyst Expl anation Advance Directives and Livin g Will 02/24/2025 10:04 AM HCP Care Teams Gluing Machine Adjuster Relationship Specialty Start Date End Date Loli Gould FNP [address] [place] [phone] PCP - General Family Medicine 05/13/22
--- OUTSIDE RECORDS SUMMARY | 2025-06-10 13:01 | XMS_ITS | Encounter Summary ---
Author Organization [employer] Address [address] [place] [address] 7t [place] [address] Care Team Providers Care Industrial Painter Name Role Phone Loli Gould Primary Care Provider [phone] Reason for Visit * Reason Onset Date Comments Appointment Request 05/01/2023 Encounter Details Date Type Department Care Team ([facility] st Contact Info) Description 05/01/2023 Telephone [facility] MEDICINE [address] [place] [address] Loli Gould FNP [address] [place] [address] Appointment Request Social History Tobacco Use Types Packs/Day Years Used Date Smoking Tobacco: Never Assessed Depression Answer Date Recorded Patient Health Questionnaire-9 Score 19 12/22/2022 Depression Answer Date Recorded Patient Health Questionnaire-2 Score 6 12/22/2022 Sex and Gender Information Value Date Recorded Sex Assigned at Male 07/18/2022 10:33 AM EDT Legal Sex Male 10:33 AM EDT Gender Identity Male 07/18/2022 10:33 AM EDT Sexual Orientation Straight 07/18/2022 10 :33 AM EDT documented as of this encounter Miscellaneous Notes * Telephone Encounter - Guillermo Alaniz - 05/01/2023 11:10 AM EDT Tc from pt spouse requesting a follow up appt with provider. Please contact pt at [phone] Eritrean Speaker documented in this encounter Plan of Treatment Upcoming Encounters Date Type Department Care Team (Late st Contact Info) Description 06/23/2025 11:30 AM EDT Office Visit [facility] CHC MED & PEDS [address] [place] [address] Loli Gould FNP [address] [place] [address] 09/29/2025 1:30 PM EST Office Visit [facility] OPTOMETRY [address] [place] [address] Kathleen Leigh, OD [address] [place] [address] documented as of this encounter Visit Diagnoses Not on filedocumented in this encounter Additional Health Concerns Assessment Noted Time PHQ-9 Depression Total Score: 19 023 8:54 AM EDT documented as of this encounter Care Teams Industrial Painter Relationship Specialty Start Date End Date Loli Gould FNP [address] [place] [address] PCP - General Family Medicine 05/13/22 documented as of this encounter
--- OUTSIDE RECORDS SUMMARY | 2025-06-10 13:01 | XMS_ITS | Encounter Summary ---
Author Organization [employer] [facility] Address [address] [place] [address] 7 [place] [address] Care Team Providers Care Transit Police Officer Name Role Phone Loli Gould Primary Care Provider [phone] Encounter Details Date Type Department Care Team (Latest Contact Info) Description 10/15/2019 Abstract [facility] CONVERSIONS Dental, Provider, DDS Social History [...] Description 06/23/2025 11:30 AM EDT Office Visit [facility] CHC MED & PEDS [address] [place] [address] Loli Gould FNP [address] [place] [address] 09/29/2025 1:30 PM EST Office Visit [facility] OPTOMETRY [address] [place] [address] Kathleen Leigh, OD [address] [place] [address] documented as of this encounter Visit Diagnoses Not on filedocumented in this encounter Care Teams Transit Police Officer Relationship Specialty Start Date End Date Loli Gould FNP [address] [place] [address] PCP - General Family Medicine 05/13/22 documented as of this encounter
--- OUTSIDE RECORDS SUMMARY | 2025-06-10 13:01 | XMS_ITS | Encounter Summary ---
Author Organization [employer] Address [address] [facility] 7t [place] [address] Care Team Providers Care Mold Machine Operator Name Role Phone Loli Gould Primary Care Provider [phone] Reason for Visit * Reason Comments Med Refill Encounter Details Date Type Department Care Team ([facility] st Contact Info) Description 04/18/2025 Refill [facility] CHC MED & PEDS [address] [place] [address] Loli Gould FNP [address] [place] [address] Social History Tobacco Use Types Packs/Day Years [...] Description 06/23/2025 11:30 AM EDT Office Visit [facility] CHC MED & PEDS [address] [place] [address] Loli Gould FNP [address] [place] [address] 09/29/2025 1:30 PM EST Office Visit [facility] OPTOMETRY [address] [place] [address] Kathleen Leigh, OD [address] [place] [address] documented as of this encounter Visit Diagnoses Not on filedocumented in this encounter Additional Health Concerns Assessment Noted Time PHQ-9 Depression Total Score: 22 025 10:24 AM EDT documented as of this encounter Care Teams Mold Machine Operator Relationship Specialty Start Date End Date Loli Gould FNP [address] [place] [address] PCP - General Family Medicine 05/13/22 documented as of this encounter
--- OUTSIDE RECORDS SUMMARY | 2025-06-10 13:01 | XMS_ITS | Encounter Summary ---
Author Organization [employer] Address [address] [facility] 7 [place] [address] Care Team Providers Care Logging Tractor Operator Swamp Name Role Phone Loli Gould Primary Care Provider [phone] Encounter Details Date Type Department Care Team ([facility] st Contact Info) Description 06/10/2025 Telephone [employer] [address] [place] [address] Loli Gould FNP [address] [place] [address] Social History Tobacco Use Types Packs/Day Years [...] encounter Miscellaneous Notes * Telephone Encounter - Mariola Govea - 06/10/2025 9:07 AM EDT Good morning Loli, I don't see any chart notes that can support referral in order to fax to Dr. Cabezas office. Please advise, thank you. documented in this encounter Plan of Treatment Upcoming Encounters Date Type Department Care Team (Late st Contact Info) Description 06/23/2025 11:30 AM EDT Office Visit [facility] CHC MED & PEDS [address] [place] [address] Loli Gould FNP [address] [place] [address] 09/29/2025 1:30 PM EST Office Visit [facility] OPTOMETRY [address] [place] [address] Reese, Kathleen, OD [address] [place] [address] documented as of this encounter Visit Diagnoses Not on filedocumented in this encounter Additional Health Concerns Assessment Noted Time PHQ-9 Depression Total Score: 22 025 10:24 AM EDT documented as of this encounter Care Teams Logging Tractor Operator Swamp Relationship Specialty Start Date End Date Loli Gould FNP [address] [place] [address] PCP - General Family Medicine 05/13/22 documented as of this encounter
--- OUTSIDE RECORDS SUMMARY | 2025-06-10 13:01 | XMS_ITS | Encounter Summary ---
Author Organization [employer] Address [address] [place] [address] 7 [place] [address] Care Team Providers Care Placement Manager Name Role Phone Loli Gould Primary Care Provider [phone] Reason for Visit * Reason Comments Med Refill Encounter Details Date Type Department Care Team (Late st Contact Info) Description 03/11/2023 Refill [facility] MEDICINE [address] [place] [address] Reji Navarrete FNP Social History Tobacco Use Types Packs/Day Years [...] Description 06/23/2025 11:30 AM EDT Office Visit [facility] CHC MED & PEDS [address] [place], [place] [phone] Loli Gould FNP [address] [place] [address] 09/29/2025 1:30 PM EST Office Visit [facility] OPTOMETRY [address] [place] [address] Kathleen Leigh, OD [address] [place] [address] documented as of this encounter Visit Diagnoses Not on filedocumented in this encounter Additional Health Concerns Assessment Noted Time PHQ-9 Depression Total Score: 19 023 8:54 AM EDT documented as of this encounter Care Teams Placement Manager Relationship Specialty Start Date End Date Loli Gould FNP [address] [place] [address] PCP - General Family Medicine 05/13/22 documented as of this encounter
--- OUTSIDE RECORDS SUMMARY | 2025-06-10 13:01 | XMS_ITS | Encounter Summary ---
Author Organization [employer] Address [address] [place] [address] 7 [place] [address] Care Team Providers Care Breaker Up Machine Operator Name Role Phone Loli Gould Primary Care Provider [phone] Reason for Visit * Reason Onset Date Comments Lab Orders 06/10/2025 Encounter Details Date Type Department Care Team ([facility] st Contact Info) Description 06/10/2025 Telephone [facility] CHC MED & PEDS [address] [place] [address] Loli Gould FNP [address] [place] [address] Lab Orders Social History Tobacco Use Types Packs/Day Years [...] encounter Miscellaneous Notes * Telephone Encounter - Kristy Perkins RN - 06/10/2025 11:05 AM EDT Pt walked in wanting to repeat Vitamin D blood work. No order currently. Last Vit D level 03/06/25 22, showing insufficiency. Advised will send request to provider if they would like to recheck vit D levels now or wait to a certain date. Advised will notify pt with answer for lab. Pt verbalized understanding and agreement with plan. documented in this encounter Plan of Treatment Upcoming Encounters Date Type Department Care Team (Late st Contact Info) Description 06/23/2025 11:30 AM EDT Office Visit [facility] CHC MED & PEDS [address] [place] [address] Loli Gould, DRAWER IN HAND [address] [place] [address] 09/29/2025 1:30 PM EST Office Visit [facility] OPTOMETRY [address] [place] [address] Reese, Kathleen, OD [address] [place] [address] documented as of this encounter Visit Diagnoses Not on filedocumented in this encounter Additional Health Concerns Assessment Noted Time PHQ-9 Depression Total Score: 025 10:24 AM EDT documented as of this encounter Care Teams Breaker Up Machine Operator Relationship Specialty Start Date End Date Loli Gould FNP [address] [place] [address] PCP - General Family Medicine 05/13/22 documented as of this encounter
[2025-06-18 14:14] LABS: Vitamin D 25-OH, D2 <4 ng/mL; Vitamin D 25-OH, D3 42 ng/mL; Vitamin D 25-OH, Total 42 ng/mL (30-100)
== END 2025-06-10 10:38 | disposition home or self-care (01) ==
LOC: HO.HHCL 10:37
PROVIDERS: PCP Registered Nurse; Visit Provider Nurse Practitioner Family
DX: E55.9 Vitamin D deficiency, unspecified (principal)
CPT/HCPCS: 36415; 82306

== ENCOUNTER 2025-07-11 12:52 | Outpatient (AMB) | payer MEDICAID, SELFPAY ==
--- OUTSIDE RECORDS SUMMARY | 2024-05-01 06:40 | XMS_ITS ---
Author Organization [facility] Address [address] [place] [phone] Care Team Providers Care Plastic Surgery Assistant Name Role Phone MARLYN SEGOVIA MD Primary Care Provider Remington Ruff [phone] REASON FOR VISIT screening, gerd Problems Problem Type SNOMED Code ICD Code Onset Dates Problem Status W/U Status Risk Notes Problem Diverticular disease of colon (628026524) Diverticulosis of large intestine without perforation or abscess without bleeding (K57.30) Active confirmed Problem Gastro-esophagea l reflux disease without esophagitis (779321034) Gastro-esophageal reflux disease without esophagitis (K21.9) Active confirmed Encounters Encounter Location Date Provider Diagnosis [facility] [place] [address] [place] [phone] 05/01/2024 Remington Frances Colon cancer scree ernie [...] Of Treatment No Information Progress Notes * GINO PERLA JDOB:1980 (44 yo M)Acc No.[id number]:05/01/2024 EGD and COL/MAC Patient: GINO SOMMER Provider: Tala Frances MD :1980 A ge:43 Y S ex:Male Date:05/01/2024 Address:[address] [place] [address] Pcp:MARLYN SEGOVIA MD Subjective: * Chief Complaints: * 1 . Screening, gerd. * Medical History: Objective: * Vitals: Assessment: * Assessment: 1. C olon cancer screening - Z12.11 (Primary) 2 . C olon polyps - K63.5? 3. D iverticulosis of large intestine without perforation or abscess without bleeding - K57.30 4 . O ther hemorrhoids - K64.8 5 . G marita-esophageal reflux disease without esophagitis - K21.9 6 . H iatal hernia - K44.9? Plan: * Treatment: * Procedure Codes: 4 5380 COLONOSCOPY AND BIOPSY, 78286 UPPER GI ENDOSCOPY, BIOPSY * * The named appointment provid er may or may not be the originator of this progress note, and it is not deemed complete until electronically signed by the appointment provider. Sign off status: Pending * Provider: Tala Frances MD Date: 0 05/01/2024 Generated for Jason queen/Azalia/eTransmitting on: 1 02:43 PM EDT
--- NOTE | 2025-07-11 13:23 | A.OFFVIS_ITS ---
Vital Signs 07/11/25 13:27 BP 142/80 H Pulse 80 Pulse Source Pulse Oximeter Pulse Oximetry (%) 95 Oxygen Delivery Method Room Air Intake Visit Reasons: Follow up for results Ok by Fryline Attendant Required: Yes Fryline Attendant Services: Fryline Attendant Present Fryline Attendant Name: LISA Anthony, biomedical engineering director Accompanied by: Self / Same As Patient Allergies aspirin (ASA) Allergy (Severe, Verified 03/06/25 13:14) ANAPHYLAXIS HPI Comments Details: Right-handed 43-yr-old male presents for follow-up to discuss results of recent DaTSCAN, in the setting of increasing forgetfulness and severe obstructive sleep apnea. Today, patient is accompanied by his , Mariola. 06/03/2025, [facility] SPECT/DaTSCAN: Mildly decreased activity in bilateral basal ganglia as described above. Differential diagnosis includes Parkinson's disease, multiple system atrophy, progressive supranuclear palsy, dementia with Lewy Bodies, and cortical basal degeneration. Today with his , he reports: He has had tremor for years, initially in the LUE with rest and activities. Again this is increase with stress or anxiety. His short-term memory issues started or a year ago. His states that for sometime he has been prone to talk, scream, fight, kick, and have frequent limb movements and asleep. He endorses hyposmia, LUE tightness and stiffness. Denies any history of antipsychotic or dopamine agonist medication use. States [place], with no known pesticide exposure. 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 He notes that he was often exposed to the gases and fumes from the buses. 03/06/2025, HPI: Since last visit, we did review his previous in-lab split night sleep study which showed severe sleep apnea with baseline AHI 45 per hour, O2 susi 77%, and SpO2 under 88% x2 0.4 minutes, average SpO2 95%. During titration component of study patient was tried on CPAP 6-16 cm H2O, and BiPAP /- and recommendation was to start patient on auto CPAP 10-18 cm H2O. Upon review, we sent an order for auto CPAP 10-18 cm H2O to his respiratory company. Patient states he is using his CPAP, but he is not always sleeping well. Unfortunately we do not have a current compliance report, in are unable to access it today. Patient also reports that his PCP is concerned about worsening forgetfulness. States his PCP recently did a mini-mental exam, and he could only recall 1 of the 3 words. Patient also states that he is no longer following up with the outside neurology group providing his LUE tremor. 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 He states he has had the LUE tremor for quite some time. The tremor occurs at rest and with activities. The tremor increases when he is anxious or stressed. He endorses hyposmia- denies any history of COVID-19 infections. He also reports LUE tightness/stiffness, low back stiffness. He continues to endorse talking in his sleep even with the using his CPAP machine, nocturnal hallucinations. He denies any specific gait changes. 2023, brain MRI with and without contrast, was unremarkable. He denies family history of movement disorder. He endorses early onset dementia symptoms in a maternal grandmother and uncle ( in the skilled nursing), and dementia in his father with onset in his mid 60s . He states his son in his early 20s, has mood disorder and schizophrenia. Patient denies history of neuroleptic exposure, states he is taking bupropion for some time 02/22/24, Initial HPI: Right-handed 43-yr-old male presents for new in-person patient visit for sleep consultation. Patient reports he was dx'd w/ sleep apnea in [id number]. He has been using CPAP, however it is not working as well. He just underwent a f/u in-lab PSG last week at [facility]- unfortunately these results are not yet available. His current PAP device is a Resmed machine. His resp company is [employer]. Sleep questionnaire: Have you ever been diagnosed with a sleep disorder? Yes Have you ever had a sleep study in the past? Yes Have you ever been treated for a sleep disorder? Yes Do you take medications for a sleep disorder? Uses Gabapentin for PLMS/RLS. Do you have difficulty initiating sleep? yes Do you have difficulty maintaining sleep? yes Wakes up 2-3 x's. Do you wake up tired? yes Do you have daytime tiredness or fatigue? yes Do you easily fall asleep when inactive? yes Do you snore? yes Do you wake up gasping at night? yes Do you have episodes of apneas? yes Do you have headaches upon awakening? no Do you wake up with dry mouth or throat? yes Do you have GERD? denies Do you have nocturia? yes Do you have nocturnal leg cramps? yes Do you have symptoms of restless legs? Yes, and has Urge to move, Restlessness,Cramps. Involuntary movements- in legs, hand tremors L > R. Do you act out your dreams? Yes- talks, yells, punches Do you have sleep paralysis? no Do you have drop attacks? no Do you ever have hypnogenic hallucinations? has some nocturnal hallucinations- at times [facility] Medical History Depression Arthritis Asthma Essential hypertension Morbid obesity NYA (obstructive sleep apnea) Surgical History History of esophagogastroduodenoscopy (EGD) H/O colonoscopy Family History Mother No problems noted. Father Throat cancer Social History Alcohol intake: never Patient Tobacco Use Status: Never used Tobacco Physical Exam Vital Signs: Last Vital Signs Pulse 80 07/11/25 13:27 BP 142/80 H 07/11/25 13:27 Pulse Ox 95 07/11/25 13:27 Oxygen Delivery Method Room Air 07/11/25 13:27 Const General: no acute distress Orientation/consciousness: patient oriented x3 Resp Effort & Inspection: normal respiratory effort and able to speak in complete sentences Auscultation: clear to auscultation bilaterally Neuro Other: Mild left facial droop Facial expression and blink okay Mild LUE rest, postural tremor, wing beat, and kinetic tremor on finger-nose test without dysmetria. Writing sample: Notable micrographia No appreciable tone in bilateral upper extremities Slight decreased fluidity in LUE DRE Fine finger movements- very slight decreased fluidity on left Foot taps-very slight decrease on left Stand slowly- slight decreased left arm swing with fine tremor General: patient oriented x3 Psych Appearance: grossly normal Mental Status: mental status grossly normal Speech and movement: Clear speech present Affect: normal affect Attitude: cooperative Assessment & Plan Assessment & Plan (1) Parkinson's disease (tremor, stiffness, slow motion, unstable posture): Comment: G20.a1, not fluctuating and without dyskinesia Code(s): G20 - Parkinson's disease Category: Medical (2) YNA (obstructive sleep apnea): Comment: uses CPAP Code(s): G47.33 - Obstructive sleep apnea (adult) (pediatric) Category: Medical (3) Parasomnia: Code(s): G47.50 - Parasomnia, unspecified Category: Medical (4) Tremor: Code(s): R25.1 - Tremor, unspecified Category: Medical (5) Cognitive changes: Code(s): R41.89 - Other symptoms and signs involving cognitive functions and awareness Category: Medical Plan Reviewed results of positive DaTSCAN with overall unremarkable lab workup, in the setting of chronic LUE tremor, hyposmia, parasomnias, increasing cognitive difficulties and a positive family history for early-onset cognitive disorder, is likely consistent with a onset Parkinson's process. * Baseline neuropsychological evaluation as ordered * We will request genetics consult for young onset movement disorder eval * We will request BUTTON CUTTING MACHINE OPERATOR eval and treat for cognitive therapy * In the meantime, continue Gabapentin 100mg bid and 300mg qhs. * Consider dopaminergic trial and follow-up For NYA: Continue APAP 10-18 cmH2O nightly > 4 hours, as pt continues to have good c linical effect from use. * Will request updated PAP compliance report * Clean CPAP machine and supplies routinely. * Change CPAP supplies routinely. * Use distilled water in CPAP water reservoir. * Pt to contact us or respiratory company with any questions or concerns. Will follow-up upon review of above and patient to follow-up in clinic in 3 months or sooner prn. Coding Level of Care Code Est Pt Level 4 (95937) Diagnoses Parkinson's disease (tremor, stiffness, slow motion, unstable posture) G20 NYA (obstructive sleep apnea) G47.33 Parasomnia G47.50 Tremor R25.1 Cognitive changes R41.89
[2025-07-11 13:27] VITALS: BP 142/80; PULSE 80; O2SAT 95
--- OUTSIDE RECORDS SUMMARY | 2025-07-11 14:43 | XMS_ITS | Encounter Summary ---
Author Organization [employer] Address [address] [facility] 7[address] [place] [address] Care Team Providers Care Pattern Hanger Name Role Phone Loli Gould SCRUFF WORKER Primary Care Provider [phone] Adrianne Pacheco Unavailable [phone] Reason for Visit * Reason Onset Date Comments Med Refill 06/23/2025 Encounter Details Date Type Department Care Team (Late st Contact Info) Description 06/23/2025 Refill [facility] MED & PEDS [address] [place] [address] Crystal Lucas MD [address] [place] [address] Periodic limb movement disorder; Mood disorder (CMS/HCC); Hypertension, essential; Keratosis pilaris Social History Tobacco Use Types Packs/Day Years Used Date Smoking Tobacco: Never Passive Smoke Exposure: Never Smokeless Tobacco: Never Depression Answer Date Recorded Patient Health Questionnaire-9 Score 22 02/21/2025 Patient Health Questionnaire-9 Score 22 02/21/2025 Last PHQ-9: Questionnaire Data Not on file 0 02/21/2025 Housing Stability Answer Date Recorded What is your housing situation today? I have shalini russo 06/23/[address] you li ve. Do you have problems with any of the following? None of the above 06/23/2025 Food Insecurity Answer Date Recorded Within the past 12 months, y ou worried that your food would run out before you got money to buy more: Sometimes True 2024 Within the past 12 months,th e food you bought just didn't last and you didn't have enough money to get more: Sometimes True 06/23/2025 Transportation Answer Date Recorded In the past [...] Care Team (Late st Contact Info) Description 09/26/2025 1:45 PM EST Office Visit [facility] CH[facility] MED & PEDS [address] [place] [address] Loli Gould FNP [address] [place] [address] 09/29/2025 1:30 PM EST Office Visit [facility] OPTOMETRY [address] [place] [address] Reese, Kathleen, OD [address] [place] [address] documented as of this encounter Visit Diagnoses Diagnosis Periodic limb movement disorder Mood disorder (CMS/HCC) Unspecified episodic mood disorder Hypertension, essential Unspecified essential hypertension Keratosis pilaris Other specified congenital anomaly of skin documented in this encounter Additional Health Concerns Assessment Noted Time PHQ-9 Depression Total Score: 22 025 10:24 AM EDT documented as of this encounter Care Teams Pattern Hanger Relationship Specialty Start Date End Date Loli Gould FNP [address] [place] [address] PCP - General Family Medicine 05/13/22 Adrianne Pacheco [address] [place] [address] Sleep Medicine 06/24/25 documented as of this encounter
--- OUTSIDE RECORDS SUMMARY | 2025-07-11 14:43 | XMS_ITS | Encounter Summary ---
Author Organization [facility] Address [address] [place] [address] 7t [place] [address] Care Team Providers Care Field Care Advocate Name Role Phone Loli Gould Primary Care Provider [phone] Adrianne Pacheco Unavailable [phone] Encounter Details Date Type Department Care Team (Latest Contact Info) Description 10/15/2019 Abstract [facility] CONVERSIONS Dental, Provider, DDS Social History [...] Description 09/26/2025 1:45 PM EST Office Visit [facility] MED & PEDS [address] [place] [address] Loli Gould FNP [address] [place] [address] 09/29/2025 1:30 PM EST Office Visit [facility] OPTOMETRY [address] [place] [address] ReeseKathleen bhatia, OD [address] [place] [address] documented as of this encounter Visit Diagnoses Not on filedocumented in this encounter Care Teams Field Care Advocate Relationship Specialty Start Date End Date Loli Gould FNP [address] [place] [address] PCP - General Family Medicine 05/13/22 Adrianne Pacheco [address] [place] [address] 3rd [place] [address] Sleep Medicine 06/24/25 documented as of this encounter
--- OUTSIDE RECORDS SUMMARY | 2025-07-11 14:43 | XMS_ITS | Encounter Summary ---
Author Organization [employer] Address [address] [place] [address] 7 [place] [address] Care Team Providers Care Faucets Assembler Name Role Phone Loli Gould Primary Care Provider [phone] Adrianne Pacheco Unavailable [phone] Reason for Visit * Reason Comments Med Refill Encounter Details Date Type Department Care Team (Late st Contact Info) Description 03/11/2023 Refill [facility] MEDICINE [address] [place] [address] Reji Navarrete FNP Social History Tobacco Use [...] Description 09/26/2025 1:45 PM EST Office Visit [facility] MED & PEDS [address] [place], [place] [phone] Loli Gould FNP 505 [place] [address] 09/29/2025 1:30 PM EST Office Visit [facility] OPTOMETRY [address] [place] [address] Kathleen Leigh, OD [address] [place] [address] documented as of this encounter Visit Diagnoses Not on filedocumented in this encounter Additional Health Concerns Assessment Noted Time PHQ-9 Depression Total Score: 19 023 8:54 AM EDT documented as of this encounter Care Teams Faucets Assembler Relationship Specialty Start Date End Date Loli Gould FNP [address] [place] [address] PCP - General Family Medicine 05/13/22 Adrianne Pacheco [address] [place] [address] Drive 3rd [place] [address] Sleep Medicine 06/24/25 documented as of this encounter
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
--- OUTSIDE RECORDS SUMMARY | 2025-07-11 14:43 | XMS_ITS | Encounter Summary ---
Author Organization [facility] Address [address] [place] [address] 7 [place] [address] Care Team Providers Care Chief Controller Tower Name Role Phone Loli Gould Primary Care Provider [phone] Adrianne Pacheco Unavailable [phone] Encounter Details Date Type Department Care Team (Latest Contact Info) Description 10/01/2018 Abstract [facility] CONVERSIONS Dental, Provider, DDS Social History [...] Description 09/26/2025 1:45 PM EST Office Visit [facility] MED & PEDS [address] [place] [address] Loli Gould FNP [address] [place] [address] 09/29/2025 1:30 PM EST Office Visit [facility] OPTOMETRY [address] [place] [address] ReeseKathleen bhatia, OD [address] [place] [address] documented as of this encounter Visit Diagnoses Not on filedocumented in this encounter Care Teams Chief Controller Tower Relationship Specialty Start Date End Date Loli Gould FNP [address] [place] [address] PCP - General Family Medicine 05/13/22 Adrianne Pacheco [address] [place] [address] 3rd [place] [address] Sleep Medicine 06/24/25 documented as of this encounter
--- OUTSIDE RECORDS SUMMARY | 2025-07-11 14:43 | XMS_ITS | Patient Health Record ---
Author Organization [facility] Address [address] [place] [id number] Care Team Providers Care Hydrographic Engineer Name Role Phone MARLYN SEGOVIA MD Primary Care Provider Remington Ruff [phone] Allergies Allergen (clinical drug ingredient) Drug/Non Drug Allergy documented on EMR Reaction Allergy Type Onset Date Status aspirin Aspirin Unknown Drug Allergy Active Reason For Referral No Information Medications Medication SIG (Take, Route, Frequency, Duration) Notes Start Date End Date Status Montelukast Sodium 10 MG 1 tablet Orally Once a day; Duration: 30 day(s) 01/31/2024 Active Senna Plus 8.6-50 MG 1 tablet as needed Orally Twice a day 01/31/2024 Active MiraLax 17 GM/SCOOP 1 scoop mixed with 8 ounces of fluid Orally Once a day; Duration: 30 day(s) 01/31/2024 Active Vitamin D-3 125 MCG (5000 UT) 1 tablet Orally Once a day; Duration: 30 day(s) 01/31/2024 Active Metoprolol Tartrate 25 MG TAKE 1 TABLET BY MOUTH TWICE DAILY Oral; Duration: 90 I10,Unavailabl e Active Albuterol Sulfate 0.63 MG/3ML INHALE 1 AMPULE USING A NEBULIZER EVERY 4 TO 6 HOURS NEEDED FOR WHEEZING OR SHORTNESS OF BREATH DIRECTED Inhalation; Duration: 5 Active Dicyclomine HCl 10 MG 1 or 2 capsules Orally Every 6 hours as needed for abdominal discomfort/bloating ; Duration: 30 day(s) 02/01/2024 Active Gabapentin 100 MG TAKE 1 CAPSULE BY MOUTH IN THE MORNING AND AFTERNOON Oral; Duration: 30 G4761,Unavaila ble Active Simethicone 80 MG 1 tablet after meals and at bedtime as needed Orally Four times a day 01/31/2024 Active Metoprolol Succinate 25 MG 1 capsule Orally Once a day; Duration: 30 day(s) 01/31/2024 Active MiraLax (colon prep) 17 GM/SCOOP 1 238Gm bottle mixed with Gatorade or Crystal Light Orally begin at 5:00 p.m. the day before the procedure; Duration: 1 day 02/01/2024 Active Flexeril 10 MG 1 tablet at bedtime as needed Orally Once a day; Duration: 30 day(s) 01/31/2024 Active Omeprazole 20 MG 1 Orally Every morning for heartburn; Duration: 30 day(s) 02/01/2024 Active Cyclobenzaprine HCl 10 MG TAKE 1 TABLET BY MOUTH THREE TIMES DAILY IN THE MORNING, AT NOON, AND AT BEDTIME NEEDED FOR MUSCLE SPASMS Oral; Duration: 20 Active MiraLax 17 GM 1 packet in 8 ounces of water Orally Once or Twice a day for constipation; Duration: 30 day(s) 02/01/2024 Active buPROPion HCl ER (XL) 300 MG TOME STEPHENIE TABLETA POR V A ORAL EN LA MA SASHA Oral; Duration: 30 Active Dulcolax (colon prep) 5 MG take at 3:00 p.m and 7:00p.m. Orally two tablets twice a day for one day; Duration: 1 day 02/01/2024 Active Immunizations Vaccine Route [...] Status Risk Notes Problem Colon cancer screening (037615562) Colon cancer screening (Z12.11) Active confirmed Problem Irritable bowel syndrome (37573855) Irritable bowel syndrome (K58.9) Active confirmed Problem Gastro-esophageal reflux disease without esophagitis (732607985) Gastro-esophageal reflux disease without esophagitis (K21.9) Active confirmed Problem Abdominal bloating (601331846) Abdominal bloating (R14.0) Active confirmed Problem Diverticular disease of colon (696919110) Diverticulosis of large intestine without perforation or abscess without bleeding (K57.30) Active confirmed Problem Lower abdominal pain (96395576) Lower abdominal pain, unspecified (R10.30) Active confirmed Problem Gastroesophageal reflux disease (disorder) (295895288) Chronic GERD (K21.9) Active confirmed Plan Of Treatment Future Test Test Name Order Date UPPER GI ENDOSCOPY 01/31/2024 COLONOSCOPY 01/31/2024 Insurance Providers Payer Name Payer Address Payer Phone Subscriber Number Group Number Insured Name Patient Relationship to Insured Coverage Start Date Coverage End Date MEDICAID OF [employer] [address] [place] [phone] [id number] GINO PERLA Self - patient is the insured Medical (General) History Medical History History ICD Code Asthma HTN EGD in [place] approx 2013-told of H.pylori-n ot sure of details Neg. colonoscopy in 2013 in [place] by his report Arthritis in back Sleep apnea-uses CPAP Depression Denies [place],DM,CVA,renal disease Obesity Surgical History Surgery Date(Month/Year)
--- OUTSIDE RECORDS SUMMARY | 2025-07-11 14:44 | XMS_ITS | Clinical Summary ---
Author Organization [facility] Address [address] [place] [address] Phone Care Team Providers Care Shearing Machine Tender Name Role Phone Unavailable Primary Care Provider Unavailabl e Social History Tobacco Use Types Packs/Day Years Used Date Smoking Tobacco: Never Assessed Sex and Gender Information Value Date Recorded Sex Assigned at Not on file Legal Sex Male 11:31 AM EDT Gender Identity Not on file Sexual Orientation Not on file Plan of Treatment Upcoming Encounters Date Type Department Care Team ([facility] Contact Info) Description 08/06/2025 11:30 AM EST Consult Bariatric Surgery [facility] [address] [facility] [address] [place] [address] Diamond Perkins MD [address] [place] [address] Health Maintenance Due Date Last Done Comments Colorectal Cancer Screening: Colonoscopy 1978 DTaP,Tdap,and Td Vaccines (1 - Tdap) 1997 Hepatitis B Vaccines (1 of 3 - 19+ 3-dose series) 1997 Depression Screening 09/18/2024 COVID-19 Vaccine ( - 2023-2 5 season) 2025 Influenza Vaccine (#1) 2025 Cholesterol Screening (Lipid Panel) 06/10/2025 HIV Screening 06/10/2025 Hepatitis C Screening 06/10/2025 Social Influencers of Health Screening 06/10/2025 RSV Immunization Adult Patie nts (1 - 1-dose 75+ series) 2053 HIB Vaccines Aged Out No longer eligi [...] on patient's age to complete this topic MMR Vaccines Aged Out No longer eligi ble based on patient's age to complete this topic Meningococcal ACWY Vaccine Aged Out N o longer eligible based on patient's age to complete this topic Meningococcal B Vaccine Aged Out No l onger eligible based on patient's age to complete this topic Pneumococcal Vaccine: Pediat rics (0 to 5 Years) and At-Risk Patients (6 to 49 Years) Aged Out No longer eligible b ased on patient's age to complete this topic RSV Immunization Patients Un guilherme 20 months Aged Out No longer eligible b ased on patient's age to complete this topic Varicella Vaccines Aged Out No longer eligible based on patient's age to complete this topic Insurance MEDICA[place] - [place]
--- OUTSIDE RECORDS SUMMARY | 2025-07-11 14:44 | XMS_ITS | Encounter Summary ---
Author Organization [facility] Address [address] [facility] [address] [place] [address] Care Team Providers Care Automotive Parts Interpreter Name Role Phone Loli Gould Primary Care Provider [phone] Adrianne Pacheco Unavailable [phone] Reason for Visit * Reason Onset Date Comments Created in error 05/06/2024 Encounter Details Date Type Department Care Team ([facility] Contact Info) Description 05/06/2024 Telephone [facility] MEDICINE [address] [place] [address] Loli Gould FNP [address] [place] [address] Created in error Social History Tobacco Use [...] to sit still 3 05/07/2024 8:00 AM EDT [facility] Becoming easily annoyed or irritable [...] some way Several days 05/06/2024 2:30 PM ABT Maliha Shaw [place] Patient Health Questionnaire-9 Score 25 05/06/2024 2:30 PM EDT Maliha Shaw [place] documented as of this encounter Plan of Treatment Upcoming Encounters Date Type Department Care Team (Late st Contact Info) Description 09/26/2025 1:45 PM EST Office Visit [facility] MED & PEDS [address] [place] [address] Loli Gould FNP [address] [place] [address] 09/29/2025 1:30 PM EST Office Visit [facility] OPTOMETRY [address] [place] [address] Reese, Kathleen, OD [address] [place] [address] documented as of this encounter Visit Diagnoses Not on filedocumented in this encounter Additional Health Concerns Assessment Noted Time PHQ-9 Depression Total Score: 25 024 2:30 PM EDT documented as of this encounter Care Teams Automotive Parts Interpreter Relationship Specialty Start Date End Date Loli Gould FNP [address] [place] [address] PCP - General Family Medicine 05/13/22 Adrianne Pacheco [address] [place] [address] Drive [address] [place] [address] Sleep Medicine 06/24/25 documented as of this encounter
--- OUTSIDE RECORDS SUMMARY | 2025-07-11 14:44 | XMS_ITS | Encounter Summary ---
Author Organization [facility] Address [address] [place] [address] [address] [place] [address] Care Team Providers Care College Or University Department Head Name Role Phone Loli Gould Primary Care Provider [phone] Adrianne Pacheco Unavailable [phone] Reason for Visit * Reason Onset Date Comments Appointment Request 05/01/2023 Encounter Details Date Type Department Care Team ([facility] st Contact Info) Description 05/01/2023 Telephone [facility] MEDICINE [address] [place] [address] Loli Gould FNP [address] [place] [address] Appointment Request Social History Tobacco Use Types [...] appt with provider. Please contact pt at [phone] Serbian Speaker documented in this encounter Plan of Treatment Upcoming Encounters Date Type Department Care Team (Late st Contact Info) Description 09/26/2025 1:45 PM EST Office Visit [facility] MED & PEDS [address] [place] [address] Loli Gould FNP [address] [place] [address] 09/29/2025 1:30 PM EST Office Visit [facility] OPTOMETRY [address] [place] [address] Reese, Kathleen, OD [address] [place] [address] documented as of this encounter Visit Diagnoses Not on filedocumented in this encounter Additional Health Concerns Assessment Noted Time PHQ-9 Depression Total Score: 19 023 8:54 AM EDT documented as of this encounter Care Teams College Or University Department Head Relationship Specialty Start Date End Date Loli Gould FNP [address] [place] [address] PCP - General Family Medicine 05/13/22 Adrianne Pacheco [address] [place] [address] Drive [address] [place] [address] Sleep Medicine 06/24/25 documented as of this encounter
--- OUTSIDE RECORDS SUMMARY | 2025-07-11 14:44 | XMS_ITS | Encounter Summary ---
Author Organization [facility] Address [address] [place] [address] [address] [place] [address] Care Team Providers Care Learning Services Coordinator Name Role Phone Loli Gould Primary Care Provider [phone] Adrianne Pacheco Unavailable [phone] Reason for Visit * Reason Comments Med Refill Encounter Details Date Type Department Care Team ([facility] Contact Info) Description 04/18/2025 Refill [facility] MED & PEDS [address] [place], [place] [phone] Loli Gould FNP [address] [place] [address] Social History Tobacco Use Types Packs/Day Years [...] Description 09/26/2025 1:45 PM EST Office Visit [facility] CHC MED & PEDS [address] [place] [address] Loli Gould FNP [address] [place] [address] 09/29/2025 1:30 PM EST Office Visit [facility] OPTOMETRY [address] [place] [address] Reese, Kathleen, OD [address] [place] [address] documented as of this encounter Visit Diagnoses Not on filedocumented in this encounter Additional Health Concerns Assessment Noted Time PHQ-9 Depression Total Score: 22 025 10:24 AM EDT documented as of this encounter Care Teams Learning Services Coordinator Relationship Specialty Start Date End Date Loli Gould FNP [address] [place] [address] PCP - General Family Medicine 05/13/22 Adrianne Pacheco [address]rd [place] [address] Sleep Medicine 06/24/25 documented as of this encounter
== END 2025-07-11 14:36 | disposition home or self-care (01) ==
LOC: HO.HSMS 12:53
PROVIDERS: PCP Registered Nurse; Visit Provider Nurse Practitioner Family
DX: G20.C Parkinsonism, unspecified (principal); G47.33 Obstructive sleep apnea (adult) (pediatric); G47.50 Parasomnia, unspecified; R25.1 Tremor, unspecified; R41.89 Other symptoms and signs involving cognitive functions and awareness
CPT/HCPCS: 99214

== ENCOUNTER → 2025-07-11 12:52 | Outpatient (BNVA) | payer MEDICAID, SELFPAY | PROVIDERS: PCP Registered Nurse; Visit Provider Nurse Practitioner Family | DX: G47.33 Obstructive sleep apnea (adult) (pediatric) (principal); G47.50 Parasomnia, unspecified; R25.1 Tremor, unspecified; R41.89 Other symptoms and signs involving cognitive functions and awareness | CPT/HCPCS: 99212 ==

== ENCOUNTER 2025-09-02 10:46 | Outpatient (AMB) | payer MEDICAID, SELFPAY ==
--- OUTSIDE RECORDS SUMMARY | 2024-05-01 05:40 | XMS_ITS ---
Author Organization [facility] Address [address] [place] [phone] Care Team Providers Care Mash Filter Operator Name Role Phone MARLYN SEGOVIA MD Primary Care Provider Remington Ruff [phone] REASON FOR VISIT screening, gerd Problems Problem Type SNOMED Code ICD Code Onset Dates Problem Status W/U Status Risk Notes Problem Diverticular disease of colon (663230990) Diverticulosis of large intestine without perforation or abscess without bleeding (K57.30) Active confirmed Problem Gastro-esophagea l reflux disease without esophagitis (924960094) Gastro-esophageal reflux disease without esophagitis (K21.9) Active confirmed Encounters Encounter Location Date Provider Diagnosis [facility] [place] [address] [place] [phone] 05/01/2024 Remington Frances Colon cancer scree ernie Z12.11 ; Colon polyps K63.5 ; Diverticulosis of large intestine without perforation or abscess without bleeding K57.30 ; Other hemorrhoids K64.8 ; Gastro-esophageal reflux disease without esophagitis K21.9 and Hiatal hernia K44.9 Assessments Encounter Date Diagnosis (ICD Code) Assessment Notes Treatment Notes Treatment Clinical Notes Section Notes 05/01/2024 Colon cancer screening (ICD-10 - Z12.11) 05/01/2024 Colon polyps (ICD-10 - K63.5) 05/01/2024 Diverticulosis of large intestine without perforation or abscess without bleeding (ICD-10 - K57.30) 05/01/2024 Other hemorrhoids (ICD-10 - K64.8) 05/01/2024 Gastro-esophageal reflux disease without esophagitis (ICD-10 - K21.9) 05/01/2024 Hiatal hernia (ICD-10 - K44.9) Plan Of Treatment No Information Progress Notes * DIPTI PERLAIX JDOB:1980 (44 yo M)Acc No.[id number]:05/01/2024 EGD and COL/MAC Patient: GINO SOMMER Provider: Tala Frances MD :1980 A ge:43 Y S ex:Male Date:05/01/2024 Address:[address] [place] [address] Pcp:MARLYN SEGOVIA MD Subjective: * Chief Complaints: * S creening, gerd Assessment: * Assessment: 1. C olon cancer screening - Z12.11 (Primary) 2 . C olon polyps - K63.5? 3. D iverticulosis of large intestine without perforation or abscess without bleeding - K57.30 4 . O ther hemorrhoids - K64.8 5 . G marita-esophageal reflux disease without esophagitis - K21.9 6 . H iatal hernia - K44.9? Plan: * Procedure Codes: 4 5380 COLONOSCOPY AND [id number] UPPER GI ENDOSCOPY, BIOPSY Billing Information: * Procedure Codes: 81839 COLONOSCOPY AND BIOPSY. 90703 UPPER GI ENDOSCOPY, BIOPSY. * The named appointment provid er may or may not be the originator of this progress note, and it is not deemed complete until electronically signed by the appointment provider. Sign off status: Pending * Provider: Tala Frances MD Date: 0 05/01/2024 Generated for Jason queen/Azalia/eTransmitting on: 1 11/03/2024 01:51 PM EST
[2025-09-02 11:08] VITALS: BP 150/80; PULSE 66; O2SAT 96; BMI 52.1
--- NOTE | 2025-09-02 11:08 | A.OFFVIS_ITS ---
Vital Signs 09/02/25 11:08 Height 5 ft 6 in Weight 323 lb BMI 52.1 BP 150/80 H Blood Pressure Location Rt brachial Position Sitting Pulse 66 Pulse Source Pulse Oximeter Pulse Oximetry (%) 96 Oxygen Delivery Method Room Air Intake Visit Reasons: 6 mo follow up Financial Management Consultant Required: Yes Financial Management Consultant Services: Financial Management Consultant Present Financial Management Consultant Name: Lorena Desir Accompanied by: Spouse Allergies aspirin (ASA) Allergy (Severe, Verified 09/02/25 11:10) ANAPHYLAXIS Medication List - Last Reconciled 09/02/25 by CONSTANCE Dupont albuterol sulfate 0.63 mg inhalation Q4-6H PRN bupropion HCl XL 300 mg PO QAM cholecalciferol (vitamin D3) (Vitamin D3) 125 mcg PO DAILY cholecalciferol (vitamin D3) 1,250 mcg PO QWEEK 12 weeks cyclobenzaprine 10 mg PO TID PRN gabapentin 100 mg PO BID metoprolol tartrate 25 mg PO BID montelukast 10 mg PO BEDTIME HPI Comments Details: History of Present Illness The patient is a Right-handed 44 year old male presenting for follow-up of Parkinson's disease (with early-onset tremor and forgetfulness), NYA, and today he reports new-onset pain in his left arm and lower back. Parkinson's Disease: - The patient presents for a follow-up visit for Parkinson's disease, with no new problems reported since his last visit in June, aside from a new pain complaint. - His clinical presentation, characterized by a tremor, is more consistent with Parkinson's disease than other parkinsonian syndromes like Lewy body dementia.. - He has an upcoming appointment for memory therapy in October and may also have a pending genetics consultation. - He previously missed a scheduled evaluation for swallowing. Chronic Pain: - The patient reports new-onset pain in his left arm and back, which started approximately 3-4 months ago. - The pain has become severe and constant over the past month. - He has been taking cyclobenzaprine (Flexeril), which has caused side effects of somnolence and dizziness. - He also takes gabapentin twice daily for pain. Obstructive Sleep Apnea: - The patient has a history of sleep apnea and is being treated with a CPAP machine. - He reports the presence of mold in his current CPAP unit. - His machine is over 5 years old, having been acquired in 2019, and he is in need of new supplies. 06/03/2025, [facility] SPECT/DaTSCAN: Mildly decreased activity in bilateral basal ganglia as described above. Differential diagnosis includes Parkinson's disease, multiple system atrophy, progressive supranuclear palsy, dementia with Lewy Bodies, and cortical basal degeneration. Today with his , he reports: He has had tremor for years, initially in the LUE with rest and activities. Again this is increase with stress or anxiety. His short-term memory issues started or a year ago. His states that for sometime he has been prone to talk, scream, fight, kick, and have frequent limb movements and asleep. He endorses hyposmia, LUE tightness and stiffness. Denies any history of antipsychotic or dopamine agonist medication use. States he [place] in [place], with no known pesticide exposure. 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 He notes that he was often exposed to the gases and fumes from the buses. 03/06/2025, HPI: Since last visit, we did review his previous in-lab split night sleep study which showed severe sleep apnea with baseline AHI 45 per hour, O2 susi 77%, and SpO2 under 88% x2 0.4 minutes, average SpO2 95%. During titration component of study patient was tried on CPAP 6-16 cm H2O, and BiPAP - and recommendation was to start patient on auto CPAP 10-18 cm H2O. Upon review, we sent an order for auto CPAP 10-18 cm H2O to his respiratory company. Patient states he is using his CPAP, but he is not always sleeping well. Unfortunately we do not have a current compliance report, in are unable to access it today. Patient also reports that his PCP is concerned about worsening forgetfulness. States his PCP recently did a mini-mental exam, and he could only recall 1 of the 3 words. Patient also states that he is no longer following up with the outside neurology group providing his LUE tremor. 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 He states he has had the LUE tremor for quite some time. The tremor occurs at rest and with activities. The tremor increases when he is anxious or stressed. He endorses hyposmia- denies any history of COVID-19 infections. He also reports LUE tightness/stiffness, low back stiffness. He continues to endorse talking in his sleep even with the using his CPAP machine, nocturnal hallucinations. He denies any specific gait changes. 2023, brain MRI with and without contrast, was unremarkable. He denies family history of movement disorder. He endorses early onset dementia symptoms in a maternal grandmother and uncle ( in the senior living), and dementia in his father with onset in his mid 60s. He states his son in his early 20s, has mood disorder and schizophrenia. Patient denies history of neuroleptic exposure, states he is taking bupropion for some time 02/22/24, Initial HPI: Right-handed 43-yr-old male presents for new in-person patient visit for sleep consultation. Patient reports he was dx'd w/ sleep apnea in 1352-3128. He has been using CPAP, however it is not working as well. He just underwent a f/u in-lab PSG last week at [facility]- unfortunately these results are not yet available. His current PAP device is a Resmed machine. His resp company is [employer]. Sleep questionnaire: Have you ever been diagnosed with a sleep disorder? Yes Have you ever had a sleep study in the past? Yes Have you ever been treated for a sleep disorder? Yes Do you take medications for a sleep disorder? Uses Gabapentin for PLMS/RLS. Do you have difficulty initiating sleep? yes Do you have difficulty maintaining sleep? yes Wakes up 2-3 x's. Do you wake up tired? yes Do you have daytime tiredness or fatigue? yes Do you easily fall asleep when inactive? yes Do you snore? yes Do you wake up gasping at night? yes Do you have episodes of apneas? yes Do you have headaches upon awakening? no Do you wake up with dry mouth or throat? yes Do you have GERD? denies Do you have nocturia? yes Do you have nocturnal leg cramps? yes Do you have symptoms of restless legs? Yes, and has Urge to move, Restlessness,Cramps. Involuntary movements- in legs, hand tremors L > R. Do you act out your dreams? Yes- talks, yells, punches Do you have sleep paralysis? no Do you have drop attacks? no Do you ever have hypnogenic hallucinations? has some nocturnal hallucinations- at times [facility] Medical History Depression Arthritis Asthma Essential hypertension Morbid obesity NYA (obstructive sleep apnea) Surgical History History of esophagogastroduodenoscopy (EGD) H/O colonoscopy Family History Mother No problems noted. Father Throat cancer Social History Alcohol intake: never Patient Tobacco Use Status: Never used Tobacco Review of Systems Narrative Review of Systems - Constitutional: Denies recent falls. - Neurological: Reports tremor. - Musculoskeletal: Reports severe, constant pain in the left arm and back that began 3-4 months ago. - Psychiatric: Reports somnolence and dizziness, which he attributes to his cyclobenzaprine medication. Physical Exam Exam Exam: Alert and oriented x3 Pleasant effect Mild left facial droop Facial expression and blink okay Mild LUE rest, postural tremor, wing beat, and kinetic tremor on finger-nose test without dysmetria. No appreciable tone in bilateral upper extremities Slight decreased fluidity in LUE DRE Fine finger movements- very slight decreased fluidity on left Foot taps-very slight decrease on left Stand slowly- slight decreased left arm swing with fine tremor Vital Signs: Last Vital Signs Pulse 66 09/02/25 11:08 BP 150/80 H 09/02/25 11:08 Pulse Ox 96 09/02/25 11:08 Oxygen Delivery Method Room Air 09/02/25 11:08 BMI result Body Mass Index 52.1 Const General: no acute distress Orientation/consciousness: patient oriented x3 Resp Effort & Inspection: normal respiratory effort and able to speak in complete sentences Auscultation: clear to auscultation bilaterally Neuro Other: Mild left facial droop Facial expression and blink okay Mild LUE rest, postural tremor, wing beat, and kinetic tremor on finger-nose test without dysmetria. Writing sample: Notable micrographia No appreciable tone in bilateral upper extremities Slight decreased fluidity in LUE DRE Fine finger movements- very slight decreased fluidity on left Foot taps-very slight decrease on left Stand slowly- slight decreased left arm swing with fine tremor General: patient oriented x3 Psych Appearance: grossly normal Mental Status: mental status grossly normal Speech and movement: Clear speech present Affect: normal affect Attitude: cooperative Assessment & Plan Assessment & Plan (1) Parkinson's disease (tremor, stiffness, slow motion, unstable posture): Comment: G20.a1, not fluctuating and without dyskinesia Code(s): G20 - Parkinson's disease Category: Medical Qualifiers: Dyskinesia presence: without dyskinesia Fluctuating manifestations: without fluctuating manifestations Qualified Code(s): G20.A1 - Parkinson's disease without dyskinesia, without mention of fluctuations (2) NYA (obstructive sleep apnea): Comment: uses CPAP Code(s): G47.33 - Obstructive sleep apnea (adult) (pediatric) Category: Medical (3) Parasomnia: Code(s): G47.50 - Parasomnia, unspecified Category: Medical Qualifiers: Parasomnia type: unspecified parasomnia Qualified Code(s): G47.50 - Parasomnia, unspecified (4) Tremor: Code(s): R25.1 - Tremor, unspecified Category: Medical (5) Cognitive changes: Code(s): R41.89 - Other symptoms and signs involving cognitive functions and awareness Category: Medical Plan Discussion Notes I explained to the patient that his clinical presentation appears most consistent with Parkinson's disease, as opposed to other syndromes like Lewy Body Dementia or MSA, because he lacks early prominent hallucinations or frequent backward falls. I noted that a definitive diagnosis often takes years to confirm, and a positive response to dopamine-based therapy can help support this diagnosis. I emphasized that exercise is one of the most effective interventions to help slow the progression of his condition, and also encouraged ongoing mental and social stimulation. We discussed his new-onset pain and the side effects of drowsiness from his current muscle relaxant, cyclobenzaprine. I proposed switching him to baclofen as an alternative. I acknowledged his report of mold in his current CPAP machine, which is now over five years old, and informed him I would be ordering a new one for him. I will be placing referrals for a weight management clinic and for a specialized physical therapy program for Parkinson's disease ( modified [facility]). I clarified that his appointment in October is for memory therapy and advised him to monitor for a call regarding a separate genetics clinic appointment. He was instructed to follow up in six months, or to call sooner if his pain persists or if he experiences any side effects from the new medication. Plan and patient instructions For Parkinson's with tremor and forgetfulness * Will place a referral for specialized physical therapy ([facility]) to address movement symptoms. * Baseline neuropsychological evaluation as ordered * We will follow-up on request genetics consult for young onset movement disorder eval * Start PLANT HR MANAGER eval and treat for cognitive therapy- as scheduled * Continue Gabapentin 100mg twice a day- it appears he has stopped the 300 mg bedtime dose. * Discontinue cyclobenzaprine, as this has caused drowsiness * Trial baclofen 10 mg tab, 1/2 - 1 tab up to 3 times a day as needed * You are encouraged to engage in regular exercise and mentally stimulating social activities to slow the progression of Parkinson's disease. * Patient encouraged to call [facility] weight loss clinic, to reschedule his initial consultation appointment- which was ordered by an outside provider * Consider dopaminergic trial and follow-up- such as rasagiline For NYA: Continue APAP 10-18 cmH2O nightly > 4 hours, as pt continues to have good clinical effect from use. * A new CPAP machine will be ordered as the patient's current device is over 5 years old and has a visible signs of mold in it. * Clean CPAP machine and supplies routinely. * Change CPAP supplies routinely. * Use distilled water in CPAP water reservoir. * Pt to contact us or respiratory company with any questions or concerns. Patient was seen in collaboration with Dr. Linh Dove today Follow-up: Patient to follow up in 6 months, or sooner if pain does not improve or if he experiences side effects from baclofen. Patient was informed and verbally consented to the use of an ambient scribe for clinic note documentation during this visit. Orders: Orders PT Evaluation and Treatment Today G20 - Parkinson's disease Medications: New baclofen 10 mg PO TID PRN 90 tabs 3RF muscle spasm 30 days Coding Level of Care Code Est Pt Level 4 (74769) Add On Problem Visit Only Diagnoses Parkinson's disease without dyskinesia or fluctuating manifestations G20.A1 Dyskinesia presence: without dyskinesia Fluctuating manifestations: without fluctuating manifestations NYA (obstructive sleep apnea) G47.33 Parasomnia, unspecified type G47.50 Parasomnia type: unspecified parasomnia Tremor R25.1 Cognitive changes R41.89
--- OUTSIDE RECORDS SUMMARY | 2025-09-02 13:51 | XMS_ITS | Encounter Summary ---
Author Organization [facility] Address [address] [place] [address] [address] [place] [address] Care Team Providers Care Senior Mortgage Loan Processor Name Role Phone Loli Gould Primary Care Provider [phone] Adrianne Pacheco Unavailable [phone] Encounter Details Date Type Department Care Team (Latest Contact Info) Description 10/15/[address] [facility] CONVERSIONS Dental, Provider, DDS Social History [...] 09/26/2025 1:45 PM EST Office Visit [facility] MED & PEDS [address] [place] [address] Loli Gould FNP [address] [place] [address] 09/29/2025 1:30 PM EST Office Visit [facility] OPTOMETRY [address] [place] [address] ReeseKathleen bhatia, OD [address] [place] [address] documented as of this encounter Visit Diagnoses Not on filedocumented in this encounter Care Teams Senior Mortgage Loan Processor Relationship Specialty Start Date End Date Loli Gould FNP [address] [place] [address] PCP - General Family Medicine 05/13/22 Adrianne Pacheco [address] [place] [address] 3rd [place] [address] Sleep Medicine 06/24/25 documented as of this encounter
--- OUTSIDE RECORDS SUMMARY | 2025-09-02 13:51 | XMS_ITS | Encounter Summary ---
Author Organization [employer] Address [address] [place] [address] Care Team Providers Care Last Code Striper Name Role Phone Loli Gould [facility]ILDREN[facility]ISTER Primary Care Provider [phone] Adrianne Pacheco Unavailable [phone] Reason for Visit * Reason Onset Date Comments Med Refill 06/23/2025 Encounter Details Date Type Department Care Team (Late st Contact Info) Description 06/23/2025 Refill [facility]EDS [address] [place] [address] Crystal Lucas MD [address] [place] [address] Periodic limb movement disorder; Mood disorder (CMS/HCC); [...] Description 09/26/2025 1:45 PM EST Office Visit [facility] MED & PEDS [address] [place] [address] Loli Gould FNP [address] [place] [address] 09/29/2025 1:30 PM EST Office Visit [facility] OPTOMETRY [address] [place] [address] Reese, Kathleen, OD [address] [place] [address] documented as of this encounter Visit Diagnoses Diagnosis Periodic limb movement disorder Mood disorder (CMS/HCC) Unspecified episodic mood disorder Hypertension, essential Unspecified essential hypertension Keratosis pilaris Other specified congenital anomaly of skin documented in this encounter Additional Health Concerns Assessment Noted Time PHQ-9 Depression Total Score: 22 025 10:24 AM EDT documented as of this encounter Care Teams Last Code Striper Relationship Specialty Start Date End Date Loli Gould FNP [address] [place] [address] PCP - General Family Medicine 05/13/22 Adrianne Pacheco [address] [place] [id number] Sleep Medicine 06/24/25 documented as of this encounter
--- OUTSIDE RECORDS SUMMARY | 2025-09-02 13:51 | XMS_ITS | Encounter Summary ---
Author Organization [employer] Address [address] [place] [address] [address] [place] [address] Care Team Providers Care Powder Worker Name Role Phone Loli Gould Primary Care Provider [phone] Adrianne Pacheco Unavailable [phone] Reason for Visit * Reason Comments Med Refill Encounter Details Date Type Department Care Team ([facility] Contact Info) Description 04/18/[address] [facility] MED [facility] PEDS [address] [place], [place] [phone] Loli Gould FNP [address] [place] [address] Social History Tobacco Use Types Packs/Day Years [...] Description 09/26/2025 1:45 PM EST Office Visit [facility] CHC MED & PEDS [address] [place] [address] Loli Gould FNP [address] [place] [address] 09/29/2025 1:30 PM EST Office Visit [facility] OPTOMETRY [address] [place] [address] Reese, Kathleen, OD [address] [place] [address] documented as of this encounter Visit Diagnoses Not on filedocumented in this encounter Additional Health Concerns Assessment Noted Time PHQ-9 Depression Total Score: 22 025 10:24 AM EDT documented as of this encounter Care Teams Powder Worker Relationship Specialty Start Date End Date Loli Gould FNP [address] [place] [address] PCP - General Family Medicine 05/13/22 Adrianne Pacheco [address] [place] [address] Sleep Medicine 06/24/25 documented as of this encounter
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
--- OUTSIDE RECORDS SUMMARY | 2025-09-02 13:51 | XMS_ITS | Encounter Summary ---
Author Organization [employer] Address [address] [facility] 7t [place] [address] Care Team Providers Care Veterinary Receptionist Name Role Phone Loli Gould Primary Care Provider [phone] Adrianne Pacheco Unavailable [phone] Reason for Visit * Reason Onset Date Comments Created in error 05/06/2024 Encounter Details Date Type Department Care Team ([facility] Contact Info) Description 05/06/2024 Telephone [facility] MEDICINE [address] [place] [address] Loli Gould FNP [address] [place] [address] Created in error Social History Tobacco Use [...] 2:30 PM EDT Denys Shaw [place] * How difficult have these problems made it for you to do your work, take care of things at home, or get along with other people? Answer Date of Assessment Author Extremely difficult 05/06/2024 2:30 PM EDT Maliha Neves [place] * Over the last 2 weeks, [...] Description 09/26/2025 1:45 PM EST Office Visit [facility] MED & PEDS [address] [place] [address] Loli Gould FNP [address] [place] [address] 09/29/2025 1:30 PM EST Office Visit [facility] OPTOMETRY [address] [place] [address] Reese, Kathleen, OD [address] [place] [address] documented as of this encounter Visit Diagnoses Not on filedocumented in this encounter Additional Health Concerns Assessment Noted Time PHQ-9 Depression Total Score: 25 024 2:30 PM EDT documented as of this encounter Care Teams Veterinary Receptionist Relationship Specialty Start Date End Date Loli Gould FNP [address] [place] [address] PCP - General Family Medicine 05/13/22 Adrianne Pacheco [address] [place] [address] Drive 3rd [place] [address] Sleep Medicine 06/24/25 documented as of this encounter
--- OUTSIDE RECORDS SUMMARY | 2025-09-02 13:51 | XMS_ITS | Encounter Summary ---
Author Organization [employer] Address [address] [place] [address] [address]t [place] [address] Care Team Providers Care Hris Developer Name Role Phone Loli Gould Primary Care Provider [phone] Adrianne Pacheco Unavailable [phone] Reason for Visit * Reason Onset Date Comments Appointment Request 05/01/2023 Encounter Details Date Type Department Care Team ([facility] st Contact Info) Description 05/01/2023 Telephone [facility] MEDICINE [address] [place] [address] Loli Gould FNP [address] [place] [address] Appointment Request Social History Tobacco Use Types [...] appt with provider. Please contact pt at [phone] Montserratian Speaker documented in this encounter Plan of Treatment Upcoming Encounters Date Type Department Care Team (Late st Contact Info) Description 09/26/2025 1:45 PM EST Office Visit [facility] MED & PEDS [address] [place] [address] Loli Gould FNP [address] [place] [address] 09/29/2025 1:30 PM EST Office Visit [facility] OPTOMETRY [address] [place] [address] Reese, Kathleen, OD [address] [place] [address] documented as of this encounter Visit Diagnoses Not on filedocumented in this encounter Additional Health Concerns Assessment Noted Time PHQ-9 Depression Total Score: 19 023 8:54 AM EDT documented as of this encounter Care Teams Hris Developer Relationship Specialty Start Date End Date Loli Gould FNP [address] [place] [address] PCP - General Family Medicine 05/13/22 Adrianne Pacheco [address] [place] [address] Drive 3rd [place] [address] Sleep Medicine 06/24/25 documented as of this encounter
--- OUTSIDE RECORDS SUMMARY | 2025-09-02 13:51 | XMS_ITS | Patient Health Record ---
Author Organization [facility] Address [address] [place] [phone] Care Team Providers Care Linux Unix System Administrator Name Role Phone MARLYN SEGOVIA MD Primary Care Provider Remington Ruff [phone] Allergies Allergen (clinical drug ingredient) Drug/Non Drug Allergy documented on EMR Reaction Allergy Type Onset Date Status aspirin Aspirin Unknown Drug Allergy Active Reason For Referral No Information Medications Medication SIG (Take, Route, Frequency, Duration) Notes Start Date End Date Status Montelukast Sodium 10 MG Tablet 1 tablet Orally Once a day; Duration: 30 day(s) 01/31/2024 Active Senna Plus 8.6-50 MG Tablet 1 tablet as needed Orally Twice a day 01/31/2024 Active MiraLax 17 GM/SCOOP Powder 1 scoop mixed with 8 ounces of fluid Orally Once a day; Duration: 30 day(s) 01/31/2024 Active Vitamin D-3 125 MCG (5000 UT) Tablet 1 tablet Orally Once a day; Duration: 30 day(s) 01/31/2024 Active Metoprolol Tartrate 25 MG Tablet TAKE 1 TABLET BY MOUTH TWICE DAILY Oral; Duration: 90 I10,Unavailabl e Active Albuterol Sulfate 0.63 MG/3ML Nebulization Solution INHALE 1 AMPULE USING A NEBULIZER EVERY 4 TO 6 HOURS NEEDED FOR WHEEZING OR SHORTNESS OF BREATH DIRECTED Inhalation; Duration: 5 Active Dicyclomine HCl 10 MG Capsule 1 or 2 capsules Orally Every 6 hours as needed for abdominal discomfort/bloating ; Duration: 30 day(s) 02/01/2024 Active Gabapentin 100 MG Capsule TAKE 1 CAPSULE BY MOUTH IN THE MORNING AND AFTERNOON Oral; Duration: 30 G4761,Unavaila ble Active Simethicone 80 MG Tablet Chewable 1 tablet after meals and at bedtime as needed Orally Four times a day 01/31/2024 Active Metoprolol Succinate 25 MG Capsule ER 24 Hour Sprinkle 1 capsule Orally Once a day; Duration: 30 day(s) 01/31/2024 Active MiraLax (colon prep) 17 GM/SCOOP Powder 1 238Gm bottle mixed with Gatorade or Crystal Light Orally begin at 5:00 p.m. the day before the procedure; Duration: 1 day 02/01/2024 Active Flexeril 10 MG Tablet 1 tablet at bedtim e as needed Orally Once a day; Duration: 30 day(s) 01/31/2024 Active Omeprazole 20 MG Capsule Delayed Release 1 Orally Every morning for heartburn; Duration: 30 day(s) 02/01/2024 Active Cyclobenzaprine HCl 10 MG Tablet TAKE 1 TABLET BY MOUTH THREE TIMES DAILY IN THE MORNING, AT NOON, AND AT BEDTIME NEEDED FOR MUSCLE SPASMS Oral; Duration: 20 Active MiraLax 17 GM Packet 1 packet in 8 ounces of water Orally Once or Twice a day for constipation; Duration: 30 day(s) 02/01/2024 Active buPROPion HCl ER (XL) 300 MG Tablet Extended Release 24 Hour TOME STEPHENIE TABLETA POR V A ORAL EN LA MA SASHA Oral; Duration: 30 Active Dulcolax (colon prep) 5 MG Tablet Delayed Release take at 3:00 p.m and 7:00p.m. Orally two tablets twice a day for one day; Duration: 1 day 02/01/2024 Active Immunizations Vaccine Route Administration Date Status Comme nts Influenza Unknown 01/31/2024 Refused Social History Tobacco Use: Social History Observation Description Date Details (start date - stop date) Never Smoker NA - NA Social History Drugs/Alcohol: Social Info Question Answer Notes Alcohol Screen Did you have a drink containing alcohol in the past year? No Points 0 Interpretation Negative Tobacco Use: Social Info Question Answer Notes Tobacco Use/Smoking Patient is a nonsmoker Additional Details Category Social Info Options Details Miscellaneous: Marital status: Section Notes: Nonsmoker; no sig. alcohol Problems Problem Type SNOMED Code ICD Code Onset Dates Problem Status W/U Status Risk Notes Problem Colon cancer screening (345548723) Colon cancer screening (Z12.11) Active confirmed Problem Irritable bowel syndrome (89739502) Irritable bowel syndrome (K58.9) Active confirmed Problem Gastro-esophageal reflux disease without esophagitis (777340180) Gastro-esophageal reflux disease without esophagitis (K21.9) Active confirmed Problem Abdominal bloating (710656223) Abdominal bloating (R14.0) Active confirmed Problem Diverticular disease of colon (434318578) Diverticulosis of large intestine without perforation or abscess without bleeding (K57.30) Active confirmed Problem Lower abdominal pain (97333968) Lower abdominal pain, unspecified (R10.30) Active confirmed Problem Gastroesophageal reflux disease (disorder) (268235974) Chronic GERD (K21.9) Active confirmed Plan Of Treatment Future Test Test Name Order Date UPPER GI ENDOSCOPY 01/31/2024 COLONOSCOPY 01/31/2024 Insurance Providers Payer Name Payer Address Payer Phone Subscriber Number Group Number Insured Name Patient Relationship to Insured Coverage Start Date Coverage End Date MEDICAID OF [employer] [address] [place] [phone] [id number] GINO PERLA Self - patient is the insured Medical (General) History Medical History History ICD Code Asthma HTN EGD in [place] approx 2013-told of H.pylori-n ot sure of details Neg. colonoscopy in 2013 in [place] by his report Arthritis in back Sleep apnea-uses CPAP Depression Denies VA,DM,CVA,renal disease Obesity Surgical History Surgery Date(Month/Year)
--- OUTSIDE RECORDS SUMMARY | 2025-09-02 13:51 | XMS_ITS | Encounter Summary ---
Author Organization [facility] Address [address] [place] [address] 7 [place] [address] Care Team Providers Care Cook Cold Meat Name Role Phone Loli Gould Primary Care Provider [phone] Adrianne Pacheco Unavailable [phone] Encounter Details Date Type Department Care Team (Latest Contact Info) Description 10/01/2018 Abstract [facility] CONVERSIONS Dental, Provider, DDS Social History [...] Description 09/26/2025 1:45 PM EST Office Visit [facility] MED & PEDS [address] [place] [address] Loli Gould FNP [address] [place] [address] 09/29/2025 1:30 PM EST Office Visit [facility] OPTOMETRY [address] [place] [address] ReeseKathleen bhatia, OD [address] [place] [address] documented as of this encounter Visit Diagnoses Not on filedocumented in this encounter Care Teams Cook Cold Meat Relationship Specialty Start Date End Date Loli Gould FNP [address] [place] [address] PCP - General Family Medicine 05/13/22 Adrianne Pacheco [address] [place] [address] 3rd [place] [address] Sleep Medicine 06/24/25 documented as of this encounter
--- OUTSIDE RECORDS SUMMARY | 2025-09-02 13:51 | XMS_ITS | Encounter Summary ---
Author Organization [employer] Address [address] [place] [address] [address] [place] [address] Care Team Providers Care Apricot Packer Name Role Phone Loli Gould Primary Care Provider [phone] Adrianne Pacheco Unavailable [phone] Reason for Visit * Reason Comments Med Refill Encounter Details Date Type Department Care Team (Late st Contact Info) Description 03/11/2023 Refill [facility] MEDICINE [address] [place], [place] [phone] Reji Navarrete FNP Social History Tobacco Use [...] Description 09/26/2025 1:45 PM EST Office Visit [facility] MED & PEDS [address] [place], [place] [phone] Loli Gould FNP [address] [place] [address] 09/29/2025 1:30 PM EST Office Visit [facility] OPTOMETRY [address] [place] [address] Kathleen Leigh, OD [address] [place] [address] documented as of this encounter Visit Diagnoses Not on filedocumented in this encounter Additional Health Concerns Assessment Noted Time PHQ-9 Depression Total Score: 19 023 8:54 AM EDT documented as of this encounter Care Teams Apricot Packer Relationship Specialty Start Date End Date Loli Gould FNP [address] [place] [address] PCP - General Family Medicine 05/13/22 Adrianne Pacheco [address] [place] [address] Drive 3rd [place] [address] Sleep Medicine 06/24/25 documented as of this encounter
== END 2025-09-02 12:03 | disposition home or self-care (01) ==
LOC: HO.HSMS 10:46
PROVIDERS: PCP Registered Nurse; Visit Provider Nurse Practitioner Family
DX: G20.A1 Parkinson's disease without dyskinesia, without mention of fluctuations (principal); G47.33 Obstructive sleep apnea (adult) (pediatric); G47.50 Parasomnia, unspecified; R25.1 Tremor, unspecified; R41.89 Other symptoms and signs involving cognitive functions and awareness
CPT/HCPCS: 99214

== ENCOUNTER → 2025-09-02 10:46 | Outpatient (BNVA) | payer MEDICAID, SELFPAY | PROVIDERS: PCP Registered Nurse; Visit Provider Nurse Practitioner Family | DX: G20.A1 Parkinson's disease without dyskinesia, without mention of fluctuations (principal); G47.33 Obstructive sleep apnea (adult) (pediatric); G47.50 Parasomnia, unspecified; R41.89 Other symptoms and signs involving cognitive functions and awareness; Z79.899 Other long term (current) drug therapy | CPT/HCPCS: 99212 ==